=== PATIENT | male | born 1945 | race Caucasian/White ===

== ENCOUNTER 2017-08-19 09:47 | Inpatient (IN) | payer MEDICARE, OTHER ==
[~2017-08-19] VITALS: Ht 160 cm; Wt 78.0 kg
[2017-08-19] VITALS (7 sets, daily range): BP systolic 152–176; BP diastolic 51–93
[2017-08-19] MEDS ORDERED: TRAZODONE HCL150 MG ORAL (10:14)
[2017-08-19] MEDS ORDERED: CEPHALEXIN500 M1 ORAL (10:14)
[2017-08-19] MEDS ORDERED: ADALAT20 MG ORAL (10:14)
[2017-08-19] MEDS ORDERED: TERAZOSIN HCL1 MG ORAL (10:14)
[2017-08-19] MEDS ORDERED: DYRENIUM50 MG PO (10:14)
[2017-08-19] MEDS ORDERED: METFORMIN HCL500 M1 ORAL (10:14)
[2017-08-19] MEDS ORDERED: CHLORTHALIDONE25 MG ORAL (10:14)
[2017-08-19] MEDS ORDERED: PROSCAR5 MG ORAL (10:14)
[2017-08-19] MEDS ORDERED: ATORVASTATIN CA40 MG ORAL (10:14)
[2017-08-19] MEDS ORDERED: HYDROcodone/Acetamin 10/325 tab ORAL ONE (10:15)
--- NOTE | 2017-08-19 10:41 | Emergency Room Report ---
History of Present Illness General Chief Complaint: Pain Source: Patient, Medical Record Present Illness HPI Patient presents complaining of right-sided hip pain He also reports that he feels like he might have a bladder infection Patient feels generally weak Denies any chest pain or shortness of breath denies any vomiting however he has had decreased oral intake Denies any flank pain Denies any recent fall patient contributes his right hip pain to trauma that he had several years ago Allergies: Coded Allergies: CELECOXIB (Verified Allergy, Unknown, 08/19/17) EGG (Verified Allergy, Unknown, 08/19/17) PENICILLINS (Verified Allergy, Unknown, 08/19/17) Patient History Past Medical History: see triage record Pertinent Family History: none Reviewed Nursing Documentation: PMH: Agreed; PSxH: Agreed Nursing Documentation-PMH Past Medical History: No History, Except For Hx Hypertension: Yes Hx Diabetes: Yes Review of Systems All Other Systems: negative except mentioned in HPI Physical Exam Vital Signs Date Time Temp Pulse Resp B/P (MAP) Pulse Ox O2 Delivery O2 Flow Rate FiO2 08/19/17 09:44 97.9 64 20 168/72 96 Room Air 97.9 Sp02 EP Interpretation: reviewed, normal General Appearance: no apparent distress Head: normocephalic, atraumatic Eyes: bilateral eye PERRL, bilateral eye EOMI ENT: normal pharynx, no angioedema Neck: full range of motion, supple Respiratory: lungs clear, normal breath sounds Cardiovascular #1: regular rate, rhythm Gastrointestinal: non tender, soft Genitourinary: other - Scrotal edema Musculoskeletal: other - Tender on palpation of the right hip, edema on both lower extremities patient in place with a walker Neurologic: alert, oriented x3, responsive Skin: other - Both lower extremity Lymphatic: no adenopathy Medical Decision Making Diagnostic Impression: Primary Impression: UTI (urinary tract infection) Additional Impression: Weakness ER Course Patient is a fairly complex patient with multiple differential to consideration including but not limited to cardiac cardiopulmonary and vascular emergencies Infectious pathology as well Patient shows signs of UTI Is generally weak also having difficulty and bleeding and at this time is admitted for further inpatient care Labs Test 08/19/17 10:20 08/19/17 11:01 White Blood Count 6.8 K/UL (4.8-10.8) Red Blood Count 4.36 M/UL (4.70-6.10) Hemoglobin 12.1 G/DL (14.2-18.0) Hematocrit 37.3 % (42.0-52.0) Mean Corpuscular Volume 86 FL (80-99) Mean Corpuscular Hemoglobin 27.8 PG (27.0-31.0) Mean Corpuscular Hemoglobin Concent 32.5 G/DL (32.0-36.0) Red Cell Distribution Width 13.3 % (11.6-14.8) Platelet Count 221 K/UL (150-450) Mean Platelet Volume 8.7 FL (6.5-10.1) Neutrophils (%) (Auto) 57.0 % (45.0-75.0) Lymphocytes (%) (Auto) 27.4 % (20.0-45.0) Monocytes (%) (Auto) 6.3 % (1.0-10.0) Eosinophils (%) (Auto) 8.0 % (0.0-3.0) Basophils (%) (Auto) 1.3 % (0.0-2.0) Sodium Level 139 MMOL/L (136-145) Potassium Level 4.1 MMOL/L (3.5-5.1) Chloride Level 105 MMOL/L (98-107) Carbon Dioxide Level 30 MMOL/L (21-32) Anion Gap 4 mmol/L (5-15) Blood Urea Nitrogen 22 mg/dL (7-18) Creatinine 1.3 MG/DL (0.55-1.30) Estimat Glomerular Filtration Rate mL/min (>60) Glucose Level 100 MG/DL (74-106) Calcium Level 9.3 MG/DL (8.5-10.1) Total Bilirubin 0.3 MG/DL (0.2-1.0) Aspartate Amino Transf (AST/SGOT) 18 U/L (15-37) Alanine Aminotransferase (ALT/SGPT) 30 U/L (12-78) Alkaline Phosphatase 84 U/L (46-116) Total Creatine Kinase 193 U/L (26-308) Creatine Kinase MB 2.9 NG/ML (0.0-3.6) Creatine Kinase MB Relative Index 1.5 Troponin I -0.020 ng/mL (0.000-0.056) Total Protein 7.4 G/DL (6.4-8.2) Albumin 3.3 G/DL (3.4-5.0) Globulin 4.1 g/dL Albumin/Globulin Ratio 0.8 (1.0-2.7) Urine Color Pale yellow Urine Appearance Clear Urine pH 5 (4.5-8.0) Urine Specific [place] 1.020 (1.005-1.035) Urine Protein Negative (NEGATIVE) Urine Glucose (UA) Negative (NEGATIVE) Urine Ketones Negative (NEGATIVE) Urine Occult Blood Negative (NEGATIVE) Urine Nitrite Negative (NEGATIVE) Urine Bilirubin Negative (NEGATIVE) Urine Urobilinogen Normal MG/DL (0.0-1.0) Urine Leukocyte Esterase 1+ (NEGATIVE) Urine RBC 0-2 /HPF (0 - 0) Urine WBC 0-2 /HPF (0 - 0) Urine Squamous Epithelial Cells None /LPF (NONE/OCC) Urine Bacteria None /HPF (NONE) Rhythm Strip Diag. Results EP Interpretation: yes Rate: 66 Rhythm: NSR, no PVC's, no ectopy Chest X-Ray Diagnostic Results Chest X-Ray Diagnostic Results : Chest X-Ray Ordered: Yes # of Views/Limited/Complete: 1 View Indication: Chest Pain EP Interpretation: Yes Interpretation: no consolidation, no effusion, no pneumothorax, no acute cardiopulmonary disease - Cardiomegaly Impression: No acute disease Electronically Signed by: David Garcia DO CT/MRI/US Diagnostic Results CT/MRI/US Diagnostic Results : Impression CT pelvic no acute disease Last Vital Signs Date Time Temp Pulse Resp B/P (MAP) Pulse Ox O2 Delivery O2 Flow Rate FiO2 08/19/17 09:56 97.9 61 15 165/64 98 Room Air 97.9 Status: improved Disposition: ADMITTED INPATIENT Condition: Serious David Garcia DO Aug 19, 2017 10:41
[2017-08-19 10:45] LABS: BASOPHILS % (AUTO) 1.3 % (0.0-2.0); HEMATOCRIT 37.3 % (42.0-52.0); HEMOGLOBIN 12.1 G/DL (14.2-18.0); LYMPHOCYTES % (AUTO) 27.4 % (20.0-45.0); MEAN CORPUSCULAR VOLUME 86 FL (80-99); MONOCYTES % (AUTO) 6.3 % (1.0-10.0); PLATELET COUNT 221 K/UL (150-450); RED BLOOD COUNT 4.36 M/UL (4.70-6.10); RED CELL DISTRIBUTION WIDTH 13.3 % (11.6-14.8); WHITE BLOOD COUNT 6.8 K/UL (4.8-10.8)
[2017-08-19 11:04] LABS: ANION GAP 4 mmol/L (5-15); BLOOD UREA NITROGEN 22 mg/dL (7-18); CALCIUM 9.3 MG/DL (8.5-10.1); CARBON DIOXIDE 30 MMOL/L (21-32); CHLORIDE 105 MMOL/L (98-107); CREATININE 1.3 MG/DL (0.55-1.30); POTASSIUM 4.1 MMOL/L (3.5-5.1); SODIUM 139 MMOL/L (136-145)
[2017-08-19 11:17] LABS: ALANINE AMINOTRANSFERASE 30 U/L (12-78); ALBUMIN 3.3 G/DL (3.4-5.0); ALBUMIN/GLOBULIN RATIO 0.8 (1.0-2.7); ALKALINE PHOSPHATASE 84 U/L (46-116); ASPARTATE AMINO TRANSFERASE 18 U/L (15-37); BILIRUBIN,TOTAL 0.3 MG/DL (0.2-1.0); CKMB 2.9 NG/ML (0.0-3.6); CREATINE KINASE 193 U/L (26-308)
[2017-08-19 11:19] LABS: BILIRUBIN, URINE NEGATIVE (NEGATIVE); COLOR,URINE PALE YELLOW; GLUCOSE, URINE (UA) NEGATIVE (NEGATIVE); KETONES,URINE NEGATIVE (NEGATIVE); LEUKOCYTE ESTERASE ,URINE 1+ (NEGATIVE); NITRITE,URINE NEGATIVE (NEGATIVE); PH,URINE 5 (4.5-8.0); PROTEIN,URINE NEGATIVE (NEGATIVE); UROBILINOGEN,URINE NORMAL MG/DL (0.0-1.0)
[2017-08-19 11:41] LABS: APPEARANCE,URINE CLEAR
--- NOTE | 2017-08-19 12:26 | Diagnostic Imaging Report ---
EXAM: XR Chest, 1 View CLINICAL HISTORY: CP TECHNIQUE: Frontal view of the chest. COMPARISON: No relevant prior studies available. FINDINGS: Lungs: Bibasilar lung atelectasis. Mild central vascular prominence. Pleural space: Unremarkable. No pneumothorax. Heart: Cardiomegaly. Mediastinum: Unremarkable. Bones/joints: Unremarkable. Other findings: IMPRESSION: 1. Cardiomegaly. Mild central vascular prominence. 2. Bibasilar lung atelectasis.
--- NOTE | 2017-08-19 12:53 | Diagnostic Imaging Report ---
EXAM: CT Pelvis Without Intravenous Contrast CLINICAL HISTORY: PAIN TECHNIQUE: Axial computed tomography images of the pelvis without intravenous contrast. CTDI is 18.27 mGy and DLP is 495 mGy-cm. One or more of the following dose reduction techniques were used: automated exposure control, adjustment of the mA and/or kV according to patient size, use of iterative reconstruction technique. COMPARISON: No relevant prior studies available. FINDINGS: Kidneys and ureters: Low-lying fused kidneys, lower abdomen. Nonobstructive 5.5 mm stone inferior pole of the right kidney. Bowel: Unremarkable. No obstruction. No mucosal thickening. Appendix: No findings to suggest acute appendicitis. Intraperitoneal space: Unremarkable. No free air. No significant fluid collection. Bladder: 2.2 cm diverticula of the right urinary bladder base. Thickening and stranding of the urinary bladder may be cystitis. No stones. Reproductive: Unremarkable as visualized. Bones/joints: L5-S1 degenerative disc disease. No acute fracture. No dislocation. Soft tissues: Large bilateral fat-containing inguinal hernias. Left ureter enters into the large left inguinal hernia before traversing to the urinary bladder. Mild fullness of bilateral renal pelvis without renal obstruction. Vasculature: Unremarkable. No lower abdominal aortic aneurysm. Lymph nodes: Prominent bilateral inguinal lymph nodes. IMPRESSION: 1. Low-lying fused kidneys, lower abdomen. Nonobstructive 5.5 mm stone inferior pole of the right kidney. 2. Large bilateral fat-containing inguinal hernias. Left ureter enters into the large left inguinal hernia before traversing to the urinary bladder. Mild fullness of bilateral renal pelvis without renal obstruction. 3. 2.2 cm diverticula of the right urinary bladder base. 4. Thickening and stranding of the urinary bladder may be cystitis. 5. Prominent bilateral inguinal lymph nodes.
[2017-08-19] MEDS ORDERED: 1/2NS w/KCl 20mEq 1000ml 1,000 ML IV SCH (13:30)
--- NOTE | 2017-08-19 15:00 | History and Physical Report ---
DATE OF ADMISSION: 08/19/2017 CHIEF COMPLAINT: Urinary frequency and urgency. HISTORY OF PRESENT ILLNESS: This is a 72-year-old male, who lives in [facility]. The patient was sent to this hospital emergency room for further evaluation. PAST MEDICAL HISTORY: 1. Hypertensive cardiovascular disease. 2. Bipolar disorder. 3. Hypercholesterolemia. 4. Benign prostatic hypertrophy. 5. Type 2 diabetes mellitus. 6. Status post bilateral hip replacements. HOME MEDICATIONS: Atorvastatin, cephalexin, chlorthalidone, Proscar, metformin, nifedipine, Hytrin, trazodone, and Dyrenium. ALLERGIES: Penicillins and Celecoxib. FAMILY HISTORY: Unremarkable. SOCIAL HISTORY: He lives in a [facility]. HABITS: He is a nonsmoker and nondrinker. There is no history of illicit drug abuse. REVIEW OF SYSTEMS: HEENT: Hearing and eyesight are normal. ENDOCRINE: Significant for type 2 diabetes mellitus. RESPIRATORY: Denies shortness of breath, cough, or hemoptysis. CARDIOVASCULAR: Denies chest pain or palpitations. GASTROINTESTINAL: No history of hematochezia, melena, hematemesis, diarrhea, or constipation. GENITOURINARY: Significant for dysuria, frequency, urgency, and hematuria. NEUROLOGICAL: No history of stroke, syncope, or Parkinson disease. PSYCHIATRIC: Significant for bipolar disorder. PHYSICAL EXAMINATION: GENERAL: This is an elderly disheveled, male, who is in no acute distress. VITAL SIGNS: Blood pressure 165/64, pulse 64 and regular, respirations 14, and temperature 97.9. HEENT: The head is normocephalic and atraumatic. Pupils are equal, round, and reactive to light and accommodation consensually. NECK: Supple. Trachea midline. No lymphadenopathy or thyromegaly. LUNGS: Clear to auscultation and percussion. HEART: Regular rate and rhythm without rubs, murmurs, or gallops. ABDOMEN: Soft and nontender. Bowel sounds were active. EXTREMITIES: No clubbing, cyanosis, or edema. NEUROLOGIC: He is alert and oriented x4. Cranial nerves II through XII intact. LABORATORY AND ANCILLARY DATA: CBC within normal limits. Chemistry within normal limits. Urinalysis essentially within normal limits. ASSESSMENT: Ongoing urinary tract infection. PLAN: 1. Start IV antibiotics. 2. Continue home medications. Prasanth Ahumada M.D. DR: KRYSTINA JOB#: [id number] CC: MATTHEW
[2017-08-19] MEDS ORDERED: Milk of Magnesia 30ml Ud ORAL PRN (21:00)
[2017-08-19] MEDS: Docusate 100mg cap ORAL SCH (21:20)
[2017-08-19] MEDS: Heparin 5000 units/ml inj SUBQ SCH (21:20)
[2017-08-20] VITALS: BP 159/63
[2017-08-20 04:00] VITALS: BP 153/72
[2017-08-20 08:00] VITALS: BP 140/59
[2017-08-20] MEDS: Levofloxacin 250mg/D5W 50ml IVPB SCH (08:38)
[2017-08-20] MEDS: Docusate 100mg cap ORAL SCH ×2 (08:38→20:39)
[2017-08-20] MEDS: metFORMIN 500mg tab ORAL SCH (08:38)
[2017-08-20] MEDS: Heparin 5000 units/ml inj SUBQ SCH ×2 (08:41→20:41)
[2017-08-20 12:00] VITALS: BP 142/70
--- NOTE | 2017-08-20 12:31 | Cardiology Report ---
APPROVED REPORT EKG Measurement Heart [id number] Sinus rhythm with sinus arrhythmia with occasional premature ventricular complexes Left axis deviation Nonspecific intraventricular block Cannot rule out Septal infarct, age undetermined T wave abnormality, consider inferolateral ischemia Abnormal ECG
--- NOTE | 2017-08-20 15:16 | General Progress Note ---
Assessment/Plan Assessment/Plan Massive B leg Edema Scrotal edema DC IVF. Diurese. R/O Liver Cirrhosis, R/o CHF Subjective Allergies: Coded Allergies: CELECOXIB (Verified Allergy, Unknown, 08/19/17) EGG (Verified Allergy, Unknown, 08/19/17) PENICILLINS (Verified Allergy, Unknown, 08/19/17) Subjective c/o B leg +scrotal edema Objective Last 24 Hour Vital Signs Date Time Temp Pulse Resp B/P (MAP) Pulse Ox O2 Delivery O2 Flow Rate FiO2 08/20/17 12:00 97.9 74 19 142/70 95 97.9 08/20/17 08:47 70 140/59 08/20/17 08:00 97.9 70 18 140/59 94 Room Air 97.9 08/20/17 04:00 97.6 66 20 153/72 96 Room Air 97.6 08/20/17 00:00 97.7 62 26 159/63 96 Room Air 97.7 08/19/17 20:32 162/84 08/19/17 19:19 97.9 61 20 176/93 97 Room Air 97.9 08/19/17 16:46 97.4 57 22 160/68 97 Room Air 97.4 08/19/17 15:38 96.4 67 18 160/51 97 Room Air 96.4 Intake and Output 08/19/17 08/20/17 19:00 07:00 Intake Total 260 ml Balance 260 ml Intake Oral 260 ml # Voids 1 6 Height (Feet): 5 Height (Inches): 3.00 Weight (Pounds): 172 Objective Cv RR Lungs CTA Abd SNT. BS + +4 Scrotal edema +4 b Leg edema Prasanth Ahumada MD Aug 20, 2017 15:16
[2017-08-20] MEDS ORDERED: 1/2 NS 1000ml IV ONE (15:25)
[2017-08-20 16:26] VITALS: BP 156/77
[2017-08-20 19:21] VITALS: BP 144/63
--- NOTE | 2017-08-20 22:18 | Consultation ---
History of Present Illness General Date patient seen: Aug 19, 2017 Chief Complaint: Pain Present Illness HPI 72-year-old male with mmp, who lives in [facility]. The pt has been hyperverbal and gets agitated easily the pt is impulsive and has poor insight Allergies: Coded Allergies: CELECOXIB (Verified Allergy, Unknown, 08/19/17) EGG (Verified Allergy, Unknown, 08/19/17) PENICILLINS (Verified Allergy, Unknown, 08/19/17) Medication History Scheduled Atorvastatin Calcium* (Atorvastatin Calcium*), 40 MG ORAL BEDTIME, (Reported) Finasteride* (Proscar*), 5 MG ORAL DAILY, (Reported) Metformin Hcl* (Metformin Hcl*), 500 MG ORAL DAILY, (Reported) Terazosin Hcl* (Hytrin*), 2 MG ORAL BEDTIME, (Reported) Trazodone* (Trazodone*), 50 MG ORAL BEDTIME, (Reported) Discontinued Medications Cephalexin* (Cephalexin*), 500 MG ORAL BID, (Reported) Discontinued Reason: MD discontinued med Chlorthalidone* (Chlorthalidone*), 25 MG ORAL DAILY, (Reported) Discontinued Reason: MD discontinued med Nifedipine (Nifedipine*), 60 MG ORAL DAILY, (Reported) Discontinued Reason: MD discontinued med Triamterene (Dyrenium), 37.5 MG PO DAILY, (Reported) Discontinued Reason: MD discontinued med Patient History Limited by: medical condition History Provided By: Patient, Medical Record, PMD Healthcare decision maker self Resuscitation status Full Code Advanced Directive on File No Past Medical/Surgical History Past Medical/Surgical History: (1) Pain (2) Weakness (3) UTI (urinary tract infection) Review of Systems Psychiatric: Reports: prior hx, anxiety, depressed feelings, emotional problems Physical Exam General Appearance: no apparent distress, alert Neurologic: oriented x 3, responsive, depressed affect Last 24 Hour Vital Signs Date Time Temp Pulse Resp B/P (MAP) Pulse Ox O2 Delivery O2 Flow Rate FiO2 08/20/17 19:21 97.9 72 20 144/63 95 Room Air 97.9 72 08/20/17 16:26 98.1 64 21 156/77 96 Room Air 98.1 08/20/17 12:00 97.9 74 19 142/70 95 97.9 08/20/17 08:47 70 140/59 08/20/17 08:00 97.9 70 18 140/59 94 Room Air 97.9 08/20/17 04:00 97.6 66 20 153/72 96 Room Air 97.6 08/20/17 00:00 97.7 62 26 159/63 96 Room Air 97.7 Intake and Output 08/19/17 08/20/17 19:00 07:00 Intake Total 260 ml Balance 260 ml Intake Oral 260 ml # Voids 1 6 Height (Feet): 5 Height (Inches): 3.00 Weight (Pounds): 172 Medications Current Medications Medications (Trade) Dose Ordered Sig/Amy Route PRN Reason Start Time Stop Time Status Last Admin Dose Admin Acetaminophen (Tylenol) 650 mg Q4H PRN ORAL Mild Pain (Pain Scale 1-3) 08/19/17 13:00 09/18/17 12:59 08/19/17 23:54 Dextrose (Dextrose 50%) 25 ml STAT PRN IV Hypoglycemia 08/19/17 13:00 09/18/17 12:59 Dextrose (Dextrose 50%) 50 ml STAT PRN IV Hypoglycemia 08/19/17 12:15 09/18/17 12:14 Diphenhydramine HCl (Benadryl) 25 mg HSPRN PRN ORAL Insomnia 08/19/17 21:15 09/18/17 21:14 08/19/17 21:19 Docusate Sodium (Colace) 100 mg EVERY 12 HOURS ORAL 08/19/17 21:00 09/18/17 20:59 08/20/17 20:39 Furosemide (Lasix) 20 mg EVERY 12 HOURS ORAL 08/20/17 21:00 09/19/17 20:59 08/20/17 20:39 Heparin Sodium (Porcine) (Heparin 5000 units/ml) 5,000 units EVERY 12 HOURS SUBQ 08/19/17 21:00 09/18/17 20:59 08/20/17 20:41 Levofloxacin 50 ml @ 50 mls/hr Q24H IVPB 08/20/17 09:00 08/25/17 09:59 08/20/17 08:38 Magnesium Hydroxide (Mom) 30 ml HSPRN PRN ORAL Constipation 08/19/17 21:00 09/18/17 20:59 Metformin HCl (Glucophage) 500 mg DAILY ORAL 08/20/17 09:00 09/19/17 08:59 08/20/17 08:38 Nifedipine (Procardia XL) 90 mg DAILY ORAL 08/21/17 09:00 09/18/17 13:59 Ondansetron HCl (Zofran) 4 mg Q6H PRN IVP Nausea & Vomiting 08/19/17 13:00 09/18/17 12:59 Pantoprazole (Protonix) 40 mg ACBREAKFAST ORAL 08/20/17 06:30 09/19/17 06:29 08/20/17 06:37 Potassium Chloride (K-Dur) 40 meq DAILY ORAL 08/21/17 09:00 09/20/17 08:59 Assessment/Plan Status: stable Assessment/Plan Bipolar d/o -Depakote 250mg bid Girish Beck M.D. Aug 20, 2017 22:18
--- NOTE | 2017-08-20 22:19 | General Progress Note ---
Assessment/Plan Assessment/Plan Bipolar d/o -Depakote 250mg bid Subjective Date patient seen: Aug 20, 2017 Neurologic/Psychiatric: Reports: anxiety, depressed, emotional problems Allergies: Coded Allergies: CELECOXIB (Verified Allergy, Unknown, 08/19/17) EGG (Verified Allergy, Unknown, 08/19/17) PENICILLINS (Verified Allergy, Unknown, 08/19/17) Objective Last 24 Hour Vital Signs Date Time Temp Pulse Resp B/P (MAP) Pulse Ox O2 Delivery O2 Flow Rate FiO2 08/20/17 19:21 97.9 72 20 144/63 95 Room Air 97.9 72 08/20/17 16:26 98.1 64 21 156/77 96 Room Air 98.1 08/20/17 12:00 97.9 74 19 142/70 95 97.9 08/20/17 08:47 70 140/59 08/20/17 08:00 97.9 70 18 140/59 94 Room Air 97.9 08/20/17 04:00 97.6 66 20 153/72 96 Room Air 97.6 08/20/17 00:00 97.7 62 26 159/63 96 Room Air 97.7 Intake and Output 08/19/17 08/20/17 19:00 07:00 Intake Total 260 ml Balance 260 ml Intake Oral 260 ml # Voids 1 6 Height (Feet): 5 Height (Inches): 3.00 Weight (Pounds): 172 General Appearance: no apparent distress, alert Neurologic: oriented x 3, responsive, depressed affect Girish Beck M.D. Aug 20, 2017 22:19
[2017-08-21 00:02] VITALS: BP 151/54
[2017-08-21 04:09] VITALS: BP 148/74
[2017-08-21 06:30] LABS: ANION GAP 7 mmol/L (5-15); BLOOD UREA NITROGEN 21 mg/dL (7-18); CALCIUM 9.8 MG/DL (8.5-10.1); CARBON DIOXIDE 30 MMOL/L (21-32); CHLORIDE 101 MMOL/L (98-107); CREATININE 1.4 MG/DL (0.55-1.30); POTASSIUM 3.9 MMOL/L (3.5-5.1); SODIUM 138 MMOL/L (136-145)
[2017-08-21 08:00] VITALS: BP 172/143
[2017-08-21] MEDS: Docusate 100mg cap ORAL SCH ×2 (09:20→21:25)
[2017-08-21] MEDS: metFORMIN 500mg tab ORAL SCH (09:20)
[2017-08-21] MEDS: Heparin 5000 units/ml inj SUBQ SCH ×2 (09:23→21:31)
[2017-08-21] MEDS: Levofloxacin 250mg/D5W 50ml IVPB SCH (10:53)
[2017-08-21 11:51] VITALS: BP 150/87
--- NOTE | 2017-08-21 12:19 | General Progress Note ---
Assessment/Plan Assessment/Plan Massive B leg Edema Scrotal edema DC IVF. Diurese. R/O Liver Cirrhosis, R/o CHF. Abd CT not CW Cirrhosis. Clinical picture CW CHF. Awaiting 2D [place] results. Subjective Allergies: Coded Allergies: CELECOXIB (Verified Allergy, Unknown, 08/19/17) EGG (Verified Allergy, Unknown, 08/19/17) PENICILLINS (Verified Allergy, Unknown, 08/19/17) Subjective c/o B leg +scrotal edema Objective Last 24 Hour Vital Signs Date Time Temp Pulse Resp B/P (MAP) Pulse Ox O2 Delivery O2 Flow Rate FiO2 08/21/17 11:51 97.4 76 20 150/87 97 97.4 08/21/17 09:20 69 172/143 08/21/17 08:00 97.9 69 20 172/143 95 97.9 08/21/17 04:09 96.2 79 20 148/74 95 Room Air 96.2 79 08/21/17 00:02 96.3 62 20 151/54 95 Room Air 96.3 62 08/20/17 19:21 97.9 72 20 144/63 95 Room Air 97.9 72 08/20/17 16:26 98.1 64 21 156/77 96 Room Air 98.1 Intake and Output 08/20/17 08/21/17 19:00 07:00 Intake Total 1500 ml Output Total 400 ml Balance 1500 ml -400 ml Intake Oral 1500 ml Output Urine Total 400 ml # Voids 5 4 # Bowel Movements 2 Laboratory Tests 08/21/17 05:15: Sodium Level 138, Potassium Level 3.9, Chloride Level 101, Carbon Dioxide Level 30, Anion Gap 7, Blood Urea Nitrogen 21H, Creatinine 1.4H, Estimat Glomerular Filtration Rate , Glucose Level 114H, Calcium Level 9.8, Magnesium Level 1.8 Height (Feet): 5 Height (Inches): 3.00 Weight (Pounds): 172 Objective Cv RR Lungs CTA Abd SNT. BS + +4 Scrotal edema +4 b Leg edema Prasanth Ahumada MD Aug 21, 2017 12:19
[2017-08-21 15:47] VITALS: BP 130/71
--- NOTE | 2017-08-21 18:52 | Cardiology Report ---
APPROVED REPORT EXAM: Two-dimensional and M-mode echocardiogram with Doppler and color Doppler. INDICATION Congestive Heart Failure M-Mode DIMENSIONS IVSd2.7 (0.7-1.1cm)Left Atrium (MM)3.9 (1.6-4.0cm) LVDd5.8 (3.5-5.6cm)Aortic Root3.5 (2.0-3.7cm) PWd1.6 (0.7-1.1cm)Aortic Cusp Exc.1.8 (1.5-2.0cm) IVSs3.6 cm LVDs5.2 (2.5-4.0cm) PWs1.3 cm Technically difficult study due to poor acoustical windows. Normal left ventricular chamber size, systolic function and wall motion. Left ventricular ejection fraction estimated to be 65-70 %. Mild left ventricular hypertrophy by 2-D. No evidence of pericardial effusion. All other cardiac chamber sizes are within normal limits. Focal aortic valve sclerosis with adequate cusp excursion. Thickened mitral valve leaflets with normal excursion. Mitral annulus and aortic root calcification. Pulmonic valve not well visualized. Normal tricuspid valve structure. IVC at size 1.9 with physiologic collapse. poor visualization of valvular detail A color flow and spectral Doppler study was performed and revealed: No aortic regurgitation. Mild mitral regurgitation. Mitral diastolic velocities suggest reduced left ventricular relaxation c/w mild LV diastolic dysfunction (Grade I ). Mild tricuspid regurgitation. Tricuspid systolic velocities suggests peak right ventricular systolic pressure of 16mmHg. Trace Pulmonic regurgitation present.
[2017-08-21 20:00] VITALS: BP 129/71
--- NOTE | 2017-08-21 23:43 | General Progress Note ---
Assessment/Plan Assessment/Plan Bipolar d/o -Depakote 250mg bid Subjective Date patient seen: Aug 21, 2017 Neurologic/Psychiatric: Reports: anxiety, depressed, emotional problems Allergies: Coded Allergies: CELECOXIB (Verified Allergy, Unknown, 08/19/17) EGG (Verified Allergy, Unknown, 08/19/17) PENICILLINS (Verified Allergy, Unknown, 08/19/17) Objective Last 24 Hour Vital Signs Date Time Temp Pulse Resp B/P (MAP) Pulse Ox O2 Delivery O2 Flow Rate FiO2 08/21/17 20:00 98.1 79 17 129/71 96 Room Air 98.1 08/21/17 15:47 98.0 75 20 130/71 94 98.0 08/21/17 11:51 97.4 76 20 150/87 97 97.4 08/21/17 09:20 69 172/143 08/21/17 08:00 97.9 69 20 172/143 95 97.9 08/21/17 04:09 96.2 79 20 148/74 95 Room Air 96.2 79 08/21/17 00:02 96.3 62 20 151/54 95 Room Air 96.3 62 Intake and Output 08/20/17 08/21/17 19:00 07:00 Intake Total 1500 ml Output Total 400 ml Balance 1500 ml -400 ml Intake Oral 1500 ml Output Urine Total 400 ml # Voids 5 4 # Bowel Movements 2 Laboratory Tests 08/21/17 05:15: Sodium Level 138, Potassium Level 3.9, Chloride Level 101, Carbon Dioxide Level 30, Anion Gap 7, Blood Urea Nitrogen 21H, Creatinine 1.4H, Estimat Glomerular Filtration Rate , Glucose Level 114H, Calcium Level 9.8, Magnesium Level 1.8 Height (Feet): 5 Height (Inches): 3.00 Weight (Pounds): 172 Girish Beck M.D. Aug 21, 2017 23:43
[2017-08-22] VITALS (7 sets, daily range): BP systolic 135–159; BP diastolic 64–83
[2017-08-22 06:57] LABS: ANION GAP 7 mmol/L (5-15); BLOOD UREA NITROGEN 25 mg/dL (7-18); CALCIUM 9.4 MG/DL (8.5-10.1); CARBON DIOXIDE 30 MMOL/L (21-32); CHLORIDE 101 MMOL/L (98-107); CREATININE 1.4 MG/DL (0.55-1.30); SODIUM 137 MMOL/L (136-145)
[2017-08-22] MEDS: Docusate 100mg cap ORAL SCH ×2 (08:30→20:34)
[2017-08-22] MEDS: metFORMIN 500mg tab ORAL SCH (08:30)
[2017-08-22] MEDS: Heparin 5000 units/ml inj SUBQ SCH ×2 (08:33→20:37)
[2017-08-22] MEDS: Levofloxacin 250mg/D5W 50ml IVPB SCH (09:35)
--- NOTE | 2017-08-22 12:57 | General Progress Note ---
Assessment/Plan Status: stable Assessment/Plan Bipolar d/o -Depakote 250mg bid Subjective Date patient seen: Aug 22, 2017 Neurologic/Psychiatric: Reports: anxiety, emotional problems Allergies: Coded Allergies: CELECOXIB (Verified Allergy, Unknown, 08/19/17) EGG (Verified Allergy, Unknown, 08/19/17) PENICILLINS (Verified Allergy, Unknown, 08/19/17) Subjective the pt is irritable and has multiple complaints. Objective Last 24 Hour Vital Signs Date Time Temp Pulse Resp B/P (MAP) Pulse Ox O2 Delivery O2 Flow Rate FiO2 08/22/17 12:07 98.2 73 18 147/82 96 Room Air 98.2 08/22/17 09:35 90 159/68 08/22/17 08:00 97.7 90 20 159/68 95 Room Air 97.7 08/22/17 04:00 98.4 79 18 158/74 98 Room Air 98.4 08/22/17 00:00 98.0 70 18 148/74 96 Room Air 98.0 08/21/17 20:00 98.1 79 17 129/71 96 Room Air 98.1 08/21/17 15:47 98.0 75 20 130/71 94 98.0 Intake and Output 08/21/17 08/22/17 19:00 07:00 Intake Total 940 ml 720 ml Output Total 100 ml Balance 940 ml 620 ml Intake Oral 940 ml 720 ml Output Urine Total 100 ml # Voids 4 3 Laboratory Tests 08/22/17 05:40: Sodium Level 137, Potassium Level 4.0, Chloride Level 101, Carbon Dioxide Level 30, Anion Gap 7, Blood Urea Nitrogen 25H, Creatinine 1.4H, Estimat Glomerular Filtration Rate , Glucose Level 101, Calcium Level 9.4 Height (Feet): 5 Height (Inches): 3.00 Weight (Pounds): 172 General Appearance: no apparent distress, alert Neurologic: oriented x 3, responsive, depressed affect Girish Beck M.D. Aug 22, 2017 12:57
--- NOTE | 2017-08-22 18:22 | General Progress Note ---
Assessment/Plan Assessment/Plan Massive B leg Edema Scrotal edema DC IVF. Diurese. R/O Liver Cirrhosis, R/o CHF. Abd CT not CW Cirrhosis. Clinical picture CW CHF. 2D Echo Diastolic CHF. Continue to diurese. Subjective Allergies: Coded Allergies: CELECOXIB (Verified Allergy, Unknown, 08/19/17) EGG (Verified Allergy, Unknown, 08/19/17) PENICILLINS (Verified Allergy, Unknown, 08/19/17) Subjective c/o B leg +scrotal edema Objective Last 24 Hour Vital Signs Date Time Temp Pulse Resp B/P (MAP) Pulse Ox O2 Delivery O2 Flow Rate FiO2 08/22/17 16:00 97.2 66 20 147/75 98 Room Air 97.2 08/22/17 12:07 98.2 73 18 147/82 96 Room Air 98.2 08/22/17 09:35 90 159/68 08/22/17 08:00 97.7 90 20 159/68 95 Room Air 97.7 08/22/17 04:00 98.4 79 18 158/74 98 Room Air 98.4 08/22/17 00:00 98.0 70 18 148/74 96 Room Air 98.0 08/21/17 20:00 98.1 79 17 129/71 96 Room Air 98.1 Intake and Output 08/21/17 08/22/17 19:00 07:00 Intake Total 940 ml 720 ml Output Total 100 ml Balance 940 ml 620 ml Intake Oral 940 ml 720 ml Output Urine Total 100 ml # Voids 4 3 Laboratory Tests 08/22/17 05:40: Sodium Level 137, Potassium Level 4.0, Chloride Level 101, Carbon Dioxide Level 30, Anion Gap 7, Blood Urea Nitrogen 25H, Creatinine 1.4H, Estimat Glomerular Filtration Rate , Glucose Level 101, Calcium Level 9.4 Height (Feet): 5 Height (Inches): 3.00 Weight (Pounds): 172 Objective Cv RR Lungs CTA Abd SNT. BS + +4 Scrotal edema +4 b Leg edema Prasanth Ahumada MD Aug 22, 2017 18:22
[2017-08-23 04:00] VITALS: BP 146/75
[2017-08-23 06:55] LABS: ANION GAP 6 mmol/L (5-15); BLOOD UREA NITROGEN 28 mg/dL (7-18); CALCIUM 9.7 MG/DL (8.5-10.1); CARBON DIOXIDE 30 MMOL/L (21-32); CHLORIDE 102 MMOL/L (98-107); CREATININE 1.4 MG/DL (0.55-1.30); SODIUM 138 MMOL/L (136-145)
[2017-08-23 08:00] VITALS: BP 147/78
[2017-08-23] MEDS: Docusate 100mg cap ORAL SCH ×2 (08:51→20:52)
[2017-08-23] MEDS: metFORMIN 500mg tab ORAL SCH (08:51)
[2017-08-23] MEDS: Heparin 5000 units/ml inj SUBQ SCH ×2 (08:55→20:57)
[2017-08-23] MEDS: Levofloxacin 250mg/D5W 50ml IVPB SCH (09:51)
[2017-08-23 12:00] VITALS: BP 147/87
--- NOTE | 2017-08-23 12:21 | General Progress Note ---
Assessment/Plan Assessment/Plan Bipolar d/o -Depakote 250mg bid Subjective Date patient seen: Aug 23, 2017 Neurologic/Psychiatric: Reports: anxiety, depressed, emotional problems Allergies: Coded Allergies: CELECOXIB (Verified Allergy, Unknown, 08/19/17) EGG (Verified Allergy, Unknown, 08/19/17) PENICILLINS (Verified Allergy, Unknown, 08/19/17) Subjective the pt is irritable and [place]. c/o [place]. The pt was at some point agitated. Objective Last 24 Hour Vital Signs Date Time Temp Pulse Resp B/P (MAP) Pulse Ox O2 Delivery O2 Flow Rate FiO2 08/23/17 08:51 72 147/78 08/23/17 08:00 97.0 72 20 147/78 97 97.0 72 08/23/17 08:00 Room Air 08/23/17 04:00 97.1 65 20 146/75 97 97.1 08/22/17 23:50 98.1 73 22 152/83 96 98.1 08/22/17 20:00 98.3 73 22 135/64 95 Room Air 98.3 08/22/17 20:00 98.3 73 22 135/64 95 98.3 08/22/17 16:00 97.2 66 20 147/75 98 Room Air 97.2 Intake and Output 08/22/17 08/23/17 19:00 07:00 Intake Total 1130 ml Balance 1130 ml Intake Oral 1080 ml IV Total 50 ml # Voids 6 1 Laboratory Tests 08/23/17 05:30: Sodium Level 138, Potassium Level 4.0, Chloride Level 102, Carbon Dioxide Level 30, Anion Gap 6, Blood Urea Nitrogen 28H, Creatinine 1.4H, Estimat Glomerular Filtration Rate , Glucose Level 102, Calcium Level 9.7, Magnesium Level 2.1 Height (Feet): 5 Height (Inches): 3.00 Weight (Pounds): 172 General Appearance: no apparent distress, alert, agitated Neurologic: oriented x 3, responsive, depressed affect Girish Beck M.D. Aug 23, 2017 12:21
--- NOTE | 2017-08-23 13:53 | General Progress Note ---
Assessment/Plan Assessment/Plan Massive B leg Edema Scrotal edema DC IVF. Diurese. R/O Liver Cirrhosis, R/o CHF. Abd CT not CW Cirrhosis. Clinical picture CW CHF. 2D Echo Diastolic CHF. Continue to diurese. Subjective Allergies: Coded Allergies: CELECOXIB (Verified Allergy, Unknown, 08/19/17) EGG (Verified Allergy, Unknown, 08/19/17) PENICILLINS (Verified Allergy, Unknown, 08/19/17) Subjective c/o B leg +scrotal edema Objective Last 24 Hour Vital Signs Date Time Temp Pulse Resp B/P (MAP) Pulse Ox O2 Delivery O2 Flow Rate FiO2 08/23/17 12:00 97.8 70 19 147/87 97 97.8 70 08/23/17 08:51 72 147/78 08/23/17 08:00 97.0 72 20 147/78 97 97.0 72 08/23/17 08:00 Room Air 08/23/17 04:00 97.1 65 20 146/75 97 97.1 08/22/17 23:50 98.1 73 22 152/83 96 98.1 08/22/17 20:00 98.3 73 22 135/64 95 Room Air 98.3 08/22/17 20:00 98.3 73 22 135/64 95 98.3 08/22/17 16:00 97.2 66 20 147/75 98 Room Air 97.2 Intake and Output 08/22/17 08/23/17 19:00 07:00 Intake Total 1130 ml Balance 1130 ml Intake Oral 1080 ml IV Total 50 ml # Voids 6 1 Laboratory Tests 08/23/17 05:30: Sodium Level 138, Potassium Level 4.0, Chloride Level 102, Carbon Dioxide Level 30, Anion Gap 6, Blood Urea Nitrogen 28H, Creatinine 1.4H, Estimat Glomerular Filtration Rate , Glucose Level 102, Calcium Level 9.7, Magnesium Level 2.1 Height (Feet): 5 Height (Inches): 3.00 Weight (Pounds): 172 Objective Cv RR Lungs CTA Abd SNT. BS + +4 Scrotal edema +4 b Leg edema Prasanth Ahumada MD Aug 23, 2017 13:53
[2017-08-23 16:00] VITALS: BP 142/66
[2017-08-23 20:00] VITALS: BP 172/78
[2017-08-24] VITALS: BP 147/109
[2017-08-24 04:00] VITALS: BP 178/97
--- NOTE | 2017-08-24 07:46 | General Progress Note ---
Assessment/Plan Assessment/Plan Decreased B leg Edema Less Scrotal edema DC IVF. Diurese. CHF. Abd CT not CW Cirrhosis. Clinical picture CW CHF. 2D Echo Diastolic CHF. Continue to diurese. DC home Subjective Allergies: Coded Allergies: CELECOXIB (Verified Allergy, Unknown, 08/19/17) EGG (Verified Allergy, Unknown, 08/19/17) PENICILLINS (Verified Allergy, Unknown, 08/19/17) Subjective c/o B leg +scrotal edema Objective Last 24 Hour Vital Signs Date Time Temp Pulse Resp B/P (MAP) Pulse Ox O2 Delivery O2 Flow Rate FiO2 08/24/17 04:00 97.6 77 18 178/97 95 Room Air 97.6 77 08/24/17 00:00 98.0 67 19 147/109 93 Room Air 98.0 67 08/23/17 20:00 98.0 71 17 172/78 94 Room Air 98.0 71 08/23/17 16:00 98.0 70 19 142/66 96 98.0 70 08/23/17 16:00 Room Air 08/23/17 12:00 Room Air 08/23/17 12:00 97.8 70 19 147/87 97 97.8 70 08/23/17 08:51 72 147/78 08/23/17 08:00 97.0 72 20 147/78 97 97.0 72 08/23/17 08:00 Room Air Intake and Output 08/23/17 08/24/17 19:00 07:00 Intake Total 350 ml 240 ml Balance 350 ml 240 ml Intake Oral 300 ml 240 ml IV Total 50 ml # Voids 2 4 Laboratory Tests 08/24/17 05:50: Sodium Level [Pending], Potassium Level [Pending], Chloride Level [Pending], Carbon Dioxide Level [Pending], Blood Urea Nitrogen [Pending], Creatinine [ Pending], Estimat Glomerular Filtration Rate [Pending], Glucose Level [Pending] , Calcium Level [Pending] Height (Feet): 5 Height (Inches): 3.00 Weight (Pounds): 172 Objective Cv RR Lungs CTA Abd SNT. BS + +4 Scrotal edema +4 b Leg edema Prasanth Ahumada MD Aug 24, 2017 07:46
[2017-08-24] MEDS ORDERED: COLACE100 MG ORAL (07:50)
[2017-08-24] MEDS ORDERED: MOM30 ML ORAL (07:50)
[2017-08-24] MEDS ORDERED: PROCARDIA XL60 MG ORAL (07:50)
[2017-08-24] MEDS ORDERED: FUROSEMIDE20 M1 ORAL (07:50)
[2017-08-24] MEDS ORDERED: GLUCOPHAGE500 MG ORAL (07:50)
[2017-08-24] MEDS ORDERED: DEPAKOTE250 MG ORAL (07:50)
[2017-08-24] MEDS ORDERED: POTASSIUM CHLO20 ME1 ORAL (07:50)
[2017-08-24 07:55] LABS: ANION GAP 9 mmol/L (5-15); BLOOD UREA NITROGEN 32 mg/dL (7-18); CALCIUM 9.8 MG/DL (8.5-10.1); CARBON DIOXIDE 27 MMOL/L (21-32); CHLORIDE 103 MMOL/L (98-107); CREATININE 1.4 MG/DL (0.55-1.30); POTASSIUM 4.3 MMOL/L (3.5-5.1); SODIUM 139 MMOL/L (136-145)
[2017-08-24 08:00] VITALS: BP 157/74
[2017-08-24] MEDS: Docusate 100mg cap ORAL SCH (09:40)
[2017-08-24] MEDS: metFORMIN 500mg tab ORAL SCH (09:41)
[2017-08-24] MEDS: Heparin 5000 units/ml inj SUBQ SCH (09:47)
[2017-08-24 12:00] VITALS: BP 137/76
--- NOTE | 2017-08-24 23:12 | General Progress Note ---
Assessment/Plan Assessment/Plan Bipolar d/o -Depakote 250mg bid Subjective Date patient seen: Aug 24, 2017 Neurologic/Psychiatric: Reports: anxiety, depressed Allergies: Coded Allergies: CELECOXIB (Verified Allergy, Unknown, 08/19/17) EGG (Verified Allergy, Unknown, 08/19/17) PENICILLINS (Verified Allergy, Unknown, 08/19/17) Subjective the pt is irritable and worried about [place]. Objective Last 24 Hour Vital Signs Date Time Temp Pulse Resp B/P (MAP) Pulse Ox O2 Delivery O2 Flow Rate FiO2 08/24/17 12:00 Room Air 08/24/17 12:00 98.2 75 18 137/76 96 98.2 08/24/17 09:51 70 143/74 08/24/17 08:00 97.3 69 18 157/74 97 97.3 08/24/17 04:00 97.6 77 18 178/97 95 Room Air 97.6 77 08/24/17 00:00 98.0 67 19 147/109 93 Room Air 98.0 67 Intake and Output 08/23/17 08/24/17 19:00 07:00 Intake Total 350 ml 240 ml Balance 350 ml 240 ml Intake Oral 300 ml 240 ml IV Total 50 ml # Voids 2 4 Laboratory Tests 08/24/17 05:50: Sodium Level 139, Potassium Level 4.3, Chloride Level 103, Carbon Dioxide Level 27, Anion Gap 9, Blood Urea Nitrogen 32H, Creatinine 1.4H, Estimat Glomerular Filtration Rate , Glucose Level 83, Calcium Level 9.8 Height (Feet): 5 Height (Inches): 3.00 Weight (Pounds): 172 Girish Beck M.D. Aug 24, 2017 23:12
--- NOTE | 2017-08-26 07:40 | Discharge Summary ---
Discharge Summary Discharge Summary _ DATE OF ADMISSION: 08/21/2017 DATE OF DISCHARGE: 08/24/2017 REASON FOR ADMISSION: 72 years male ,with past medical history significant for diabetes mellitus type 2, hypertensive cardiovascular disease, bipolar disorder, hypercholesterolemia, BPH, status post bilateral hip surgery replacement, resident of [facility], presented to emergency department with right-sided hip pain and generalized weakness. He stated that he might have urinary tract infection. He denied chest pain .shortness of breath, no fever, no chills, no recent fall or trauma and injury to the hip. Upon evaluation in emergency room he was afebrile, no leukocytosis. BUN 22, creatinine 1.3; hemoglobin 12.1 , hematocrit 37.3. Stable electrolytes, and liver enzymes. Troponin was negative, CK 193. Urinalysis was positive for leukocytes esterase. CT of the abdomen and pelvis revealed: 1. Low-lying fused kidneys, lower abdomen. Nonobstructive 5.5 mm stone inferior pole of the right kidney. 2. Large bilateral fat-containing inguinal hernias. Left ureter enters into the large left inguinal hernia before traversing to the urinary bladder. Mild fullness of bilateral renal pelvis without renal obstruction. 3. 2.2 cm diverticula of the right urinary bladder base. 4. Thickening and stranding of the urinary bladder may be cystitis. 5. Prominent bilateral inguinal lymph nodes. Chest x-ray revealed cardiomegaly , bibasilar atelectasis and vascular prominence. Patient admitted with diagnosis of probable UTI, generalized weakness CONSULTANTS: psychiatrist [facility] COURSE: Patient admitted and started on the IV fluids and empiric antibiotics. Urine culture revealed mixed gram-positive organisms. Blood culture were negative. Patient completed a course of antibiotics. Psychiatry evaluation was requested. Patient was diagnosed with bipolar disorder and started on Depakote. Patient was noted to have a massive bilateral lower extremity edema along with scrotal edema. IV fluids were stopped. CT of the abdomen and pelvis was not consistent with liver cirrhosis Echocardiogram revealed ejection fraction 65-70% and right ventricular systolic pressure of 16, no evidence of pericardial effusion ; ECHO was consistent with diastolic congestive heart failure. Patient started on diuresis intravenously. Cardiorenal parameters and volumes were closely monitored. Electrolytes were replaced as needed. Venous duplex bilateral lower extremity was negative for evidence of acute DVT Blood pressure was managed with calcium channel christ. Blood sugar was managed with metformin and remained stable. DVT and GI prophylaxis provided. Supportive care provided. Bowel regimen instituted. Patient was working with physical and occupational therapists. Patient clinically stabilized and was ready for discharge back to [id number] FINAL DIAGNOSES: Urinary tract infection Diastolic congestive heart failure DISCHARGE MEDICATIONS: See Medication Reconciliation list. DISCHARGE INSTRUCTIONS: Patient was discharged to [facility] care. Follow up with medical doctor I have been assigned to dictate discharge summary for this account. I was not involved in the patient's management. Deepika Jerome NP Aug 26, 2017 07:40
--- NOTE | 2017-08-26 22:19 | Diagnostic Imaging Report ---
APPROVED REPORT CPT Code: 48010 Present Symptoms Comments: BILATERAL LEGS PAIN AND SWELLING. BILATERAL: Imaging reveals a patent deep venous system bilaterally. There is no evidence of thrombus within the femoral, popliteal or tibial segments. The greater saphenous veins are also within normal limits. Doppler indicates normal spontaneous flow within these segments. Edema noted in bilateral calves.
== END 2017-08-24 14:00 | disposition home or self-care (01) | DRG 292 ==
LOC: EDBD 09:47 → EMR 10:55 → EDBEDREQ 11:53 → 4W 12:18
DX: I11.0 Hypertensive heart disease with heart failure (principal); N39.0 Urinary tract infection, site not specified; I50.30 Unspecified diastolic (congestive) heart failure; F31.9 Bipolar disorder, unspecified; E78.00 Pure hypercholesterolemia, unspecified; E11.9 Type 2 diabetes mellitus without complications; M25.551 Pain in right hip; Z96.643 Presence of artificial hip joint, bilateral; N50.89 Other specified disorders of the male genital organs; N40.1 Benign prostatic hyperplasia with lower urinary tract symptoms; R39.15 Urgency of urination; R31.9 Hematuria, unspecified
CPT/HCPCS: 36415; 71045; 72192; 80048; 80053; 81003; 82550; 82553; 82962; 83735; 84484; 85025; 87040; 87081; 87086; 93005; 93306; 93970; 99285; J8499

== ENCOUNTER 2017-10-18 09:31 | Inpatient (IN) | payer MEDICARE, OTHER ==
[~2017-10-18] VITALS: Ht 160 cm; Wt 81.6 kg
[~2017-10-18 09:31] MED LIST: ADALAT20 MG ORAL; ATORVASTATIN CA40 MG ORAL; CEPHALEXIN500 M1 ORAL; CHLORTHALIDONE25 MG ORAL; COLACE100 MG ORAL; DEPAKOTE250 MG ORAL; DYRENIUM50 MG PO; FUROSEMIDE20 M1 ORAL; GLUCOPHAGE500 MG ORAL; METFORMIN HCL500 M1 ORAL; MOM30 ML ORAL; POTASSIUM CHLO20 ME1 ORAL; PROCARDIA XL60 MG ORAL; PROSCAR5 MG ORAL; TERAZOSIN HCL1 MG ORAL; TRAZODONE HCL150 MG ORAL
[2017-10-18] MEDS ORDERED: IBUPROFEN600 MG ORAL (09:42)
[2017-10-18] MEDS ORDERED: TERAZOSIN HCL1 MG ORAL (09:42)
[2017-10-18] MEDS ORDERED: TRIAMTERENE-HC1 EAC7 ORAL (09:42)
[2017-10-18] MEDS ORDERED: CHLORTHALIDONE25 MG ORAL (09:42)
[2017-10-18] MEDS ORDERED: ATORVASTATIN CA40 MG ORAL (09:42)
[2017-10-18] MEDS ORDERED: MELATONIN3 MG ORAL (09:42)
[2017-10-18] MEDS ORDERED: CEPHALEXIN500 M1 ORAL (09:42)
[2017-10-18] MEDS ORDERED: TRAZODONE HCL50 MG ORAL (09:42)
[2017-10-18] MEDS ORDERED: PROSCAR5 MG ORAL (09:42)
[2017-10-18 09:52] VITALS: BP 182/86
[2017-10-18 11:08] LABS: BASOPHILS % (AUTO) 1.2 % (0.0-2.0); EOSINOPHILS % (AUTO) 6.4 % (0.0-3.0); HEMATOCRIT 38.9 % (42.0-52.0); HEMOGLOBIN 12.9 G/DL (14.2-18.0); MEAN CORPUSCULAR VOLUME 85 FL (80-99); MONOCYTES % (AUTO) 4.6 % (1.0-10.0); NEUTROPHILS % (AUTO) 59.9 % (45.0-75.0); PLATELET COUNT 184 K/UL (150-450); RED BLOOD COUNT 4.59 M/UL (4.70-6.10); RED CELL DISTRIBUTION WIDTH 12.4 % (11.6-14.8)
[2017-10-18 11:15] LABS: APPEARANCE,URINE CLEAR; BILIRUBIN, URINE NEGATIVE (NEGATIVE); COLOR,URINE PALE YELLOW; GLUCOSE, URINE (UA) NEGATIVE (NEGATIVE); KETONES,URINE NEGATIVE (NEGATIVE); LEUKOCYTE ESTERASE ,URINE NEGATIVE (NEGATIVE); NITRITE,URINE NEGATIVE (NEGATIVE); PH,URINE 6 (4.5-8.0); PROTEIN,URINE NEGATIVE (NEGATIVE); UROBILINOGEN,URINE NORMAL MG/DL (0.0-1.0)
--- NOTE | 2017-10-18 11:17 | Emergency Room Report ---
History of Present Illness General Chief Complaint: Generalized Weakness Source: Patient Present Illness HPI This patient is referred from assisted living facility due to being too difficult to manage at this low level of care. There is no report of fever, trauma, vomiting. The patient is a poor historian. EMR shows admission from August for UTI. History otherwise limited due to clinical condition. Allergies: Coded Allergies: CELECOXIB (Verified Allergy, Unknown, 08/19/17) EGG (Verified Allergy, Unknown, 08/19/17) PENICILLINS (Verified Allergy, Unknown, 08/19/17) Nursing Documentation-[facility] Past Medical History: No History, Except For Hx Hypertension: Yes Hx Diabetes: Yes Hx Cancer: No Hx Gastrointestinal Problems: No Hx Neurological Problems: No Review of Systems Constitutional: Reports: no symptoms Eye: Reports: no symptoms ENT: Reports: no symptoms Respiratory: Reports: no symptoms Cardiovascular: Reports: no symptoms Gastrointestinal: Reports: no symptoms Genitourinary: Reports: no symptoms Musculoskeletal: Reports: no symptoms Skin: Reports: no symptoms Psychiatric: Reports: no symptoms Neurological: Reports: no symptoms Endocrine: Reports: no symptoms Hematologic/Lymphatic: Reports: no symptoms Allergic: Reports: no symptoms All Other Systems: limited Physical Exam Vital Signs Date Time Temp Pulse Resp B/P (MAP) Pulse Ox O2 Delivery O2 Flow Rate FiO2 10/18/17 09:34 98.0 62 18 182/86 98 Room Air 98.1 Sp02 EP Interpretation: reviewed, normal General Appearance: normal inspection, well appearing, no apparent distress, alert, GCS 15, non-toxic, other - unkempt, malodorous Head: normocephalic, atraumatic Eyes: bilateral eye normal inspection, bilateral eye PERRL, bilateral eye EOMI ENT: normal ENT inspection, hearing grossly normal, normal pharynx, no angioedema, normal voice, moist mucus membranes Neck: normal inspection, full range of motion, supple, no meningismus, no bony tend Respiratory: normal inspection, lungs clear, normal breath sounds, no rhonchi, no respiratory distress, no retraction, no accessory muscle use, no wheezing Cardiovascular #1: normal inspection, regular rate, rhythm, no edema Gastrointestinal: normal inspection, normal bowel sounds, non tender, soft, no mass, non-distended Musculoskeletal: gait/station normal, normal range of motion Neurologic: normal inspection, alert, oriented x3, responsive, motor strength/ tone normal Psychiatric: anxious, other - poor insight, limited judgment Suicide Risk Assessment: Suicidal Ideation: No Had intent to initiate attempt: No Pt's plan for suicide attempt: No Has means to complete attempt: No Skin: normal inspection, normal color, no rash, warm/dry Medical Decision Making Diagnostic Impression: Primary Impression: Failure to thrive syndrome, adult ER Course Limited history but patient is unable to be managed at current (assisted) living level of care. On presentation to ED he is malodorous, unkempt. His BUN/ creatinine is slightly elevated and IV NS is ordered. EKG Diagnostic Results EKG Time: 11:12 EP Interpretation: NSR 60, LAD, LVH Rate: normal Rhythm: NSR ST Segments: no acute changes ASA given to the pt in ED: No Rhythm Strip Diag. Results Rhythm Strip Time: 11:16 EP Interpretation: yes Rhythm: NSR Last Vital Signs Date Time Temp Pulse Resp B/P (MAP) Pulse Ox O2 Delivery O2 Flow Rate FiO2 10/18/17 10:05 98.4 10/18/17 09:52 60 18 182/86 98 Room Air Disposition: ADMITTED INPATIENT Condition: Stable Referrals: David Osullivan MD (PCP) Patient Instructions: Headache and Arthritis Anish Kang M.D. Oct 18, 2017 11:17
[2017-10-18 11:32] VITALS: BP 185/78
[2017-10-18 12:02] LABS: ANION GAP 9 mmol/L (5-15); BLOOD UREA NITROGEN 20 mg/dL (7-18); CALCIUM 7.3 MG/DL (8.5-10.1); CARBON DIOXIDE 21 MMOL/L (21-32); CHLORIDE 112 MMOL/L (98-107); CREATININE 0.8 MG/DL (0.55-1.30); POTASSIUM 3.6 MMOL/L (3.5-5.1); SODIUM 142 MMOL/L (136-145)
[2017-10-18 12:07] LABS: ALANINE AMINOTRANSFERASE 15 U/L (12-78); ALBUMIN 2.6 G/DL (3.4-5.0); ALBUMIN/GLOBULIN RATIO 0.8 (1.0-2.7); ALKALINE PHOSPHATASE 53 U/L (46-116); ASPARTATE AMINO TRANSFERASE 24 U/L (15-37); BILIRUBIN,TOTAL 0.4 MG/DL (0.2-1.0)
--- NOTE | 2017-10-18 12:09 | Diagnostic Imaging Report ---
Indication: Chest pain Technique: One view of the chest Comparison: 08/19/2017 Findings: Lungs and pleural spaces are clear. The heart is borderline enlarged. The aorta is tortuous and ectatic. Previously reported interstitial congestion is no longer evident Impression: Borderline cardiomegaly. No acute process
[2017-10-18] MEDS ORDERED: HydrALAZINE 25mg tab ORAL PRN (13:30)
[2017-10-18] MEDS ORDERED: Milk of Magnesia 30ml Ud ORAL PRN (14:45)
--- NOTE | 2017-10-18 15:18 | Consultation ---
Consult Note Consult Note asked to eval for management of BP This patient is referred from assisted living facility due to being too difficult to manage at this low level of care. There is no report of fever, trauma, vomiting. The patient is a poor historian. EMR shows admission from August for UTI. History otherwise limited due to clinical condition. Allergies: CELECOXIB (Verified Allergy, Unknown, 08/19/17) EGG (Verified Allergy, Unknown, 08/19/17) PENICILLINS (Verified Allergy, Unknown, 08/19/17) Past Medical History: No History, Except For Hx Hypertension: Yes Hx Diabetes: Yes interviewed- examined- data reviewed Assessment/Plan HTN OOC FFT DM BPH Hydrate- DC Diuretics 2D echo Monitor BS and BP Norvasc- Hydralazine- Flomax Yomi Bingham MD Oct 18, 2017 15:18
[2017-10-18 15:42] VITALS: BP 153/85
[2017-10-18] MEDS: NovoLOG Insulin Flexpen SUBQ SCH ×2 (16:30→22:09)
[2017-10-18] MEDS: Tamsulosin 0.4mg cap ORAL SCH (17:13)
[2017-10-18] MEDS: Docusate 100mg cap ORAL SCH (17:13)
[2017-10-18 20:00] VITALS: BP 151/80
[2017-10-18] MEDS ORDERED: Terazosin 1mg cap ORAL SCH (21:00)
[2017-10-18] MEDS ORDERED: Atorvastatin 20mg tab ORAL SCH (21:00)
[2017-10-18] MEDS ORDERED: Docusate 100mg cap ORAL SCH (21:00)
[2017-10-18] MEDS: TraZODone 50mg tab ORAL SCH (22:08)
[2017-10-18] MEDS: HydrALAZINE 25mg tab ORAL SCH (22:08)
[2017-10-19] VITALS: BP 143/79
[2017-10-19 04:00] VITALS: BP 154/80
[2017-10-19] MEDS: HydrALAZINE 25mg tab ORAL SCH (06:39)
[2017-10-19] MEDS: NovoLOG Insulin Flexpen SUBQ SCH ×4 (06:42→21:24)
[2017-10-19 07:26] LABS: EOSINOPHILS % (AUTO) 5.6 % (0.0-3.0); HEMOGLOBIN 13.9 G/DL (14.2-18.0); LYMPHOCYTES % (AUTO) 28.1 % (20.0-45.0); MEAN CORPUSCULAR VOLUME 86 FL (80-99); MONOCYTES % (AUTO) 5.2 % (1.0-10.0); PLATELET COUNT 209 K/UL (150-450); RED BLOOD COUNT 4.88 M/UL (4.70-6.10); RED CELL DISTRIBUTION WIDTH 12.4 % (11.6-14.8); WHITE BLOOD COUNT 6.5 K/UL (4.8-10.8)
[2017-10-19 08:12] LABS: % IRON SATURATION 26 % (15-50); IRON 91 ug/dL (50-175); TOTAL IRON BINDING CAPACITY 346 ug/dL (250-450)
[2017-10-19 08:24] LABS: ALANINE AMINOTRANSFERASE 26 U/L (12-78); ALBUMIN 3.8 G/DL (3.4-5.0); ALBUMIN/GLOBULIN RATIO 0.9 (1.0-2.7); ALKALINE PHOSPHATASE 79 U/L (46-116); ANION GAP 5 mmol/L (5-15); ASPARTATE AMINO TRANSFERASE 16 U/L (15-37); BILIRUBIN,TOTAL 0.6 MG/DL (0.2-1.0); BLOOD UREA NITROGEN 19 mg/dL (7-18); CALCIUM 9.4 MG/DL (8.5-10.1); CARBON DIOXIDE 29 MMOL/L (21-32); CHLORIDE 103 MMOL/L (98-107); CHOLESTEROL 249 MG/DL (< 200); CREATININE 1.2 MG/DL (0.55-1.30); FERRITIN 76 NG/ML (8-388); HDL CHOLESTEROL 47 MG/DL (40-60); POTASSIUM 4.1 MMOL/L (3.5-5.1); SODIUM 137 MMOL/L (136-145); TRIGLYCERIDES 169 MG/DL (30-150)
[2017-10-19] MEDS: Docusate 100mg cap ORAL SCH ×3 (08:37→18:03)
[2017-10-19] MEDS: Tamsulosin 0.4mg cap ORAL SCH ×2 (08:37→18:03)
[2017-10-19 08:55] LABS: CREATINE KINASE 136 U/L (26-308); GAMMA GLUTAMYL TRANSPEPTIDASE 25 U/L (5-85); PHOSPHORUS 2.9 MG/DL (2.5-4.9)
[2017-10-19] MEDS ORDERED: Triamterene/Hctz 37.5/25 cap ORAL SCH (09:00)
[2017-10-19] MEDS ORDERED: metFORMIN 500mg tab ORAL SCH (09:00)
--- NOTE | 2017-10-19 09:51 | Nephrology Progress Note ---
Assessment/Plan Problem List: (1) Failure to thrive syndrome, adult (2) HTN (hypertension) (3) BPH (benign prostatic hyperplasia) Assessment HTN OOC- FFT- DM- BPH- Plan Hydrate- DC Diuretics 2D echo pending Monitor BS and BP Norvasc- Hydralazine- Flomax add lipitor Subjective ROS Limited/Unobtainable: No Constitutional: Reports: malaise Objective Objective Last 24 Hour Vital Signs Date Time Temp Pulse Resp B/P (MAP) Pulse Ox O2 Delivery O2 Flow Rate FiO2 10/19/17 08:38 73 166/87 10/19/17 06:39 154/80 10/19/17 04:00 96.3 69 19 154/80 (104) 98 96.3 10/19/17 00:00 97.0 69 19 143/79 (100) 97.0 10/18/17 22:08 138/73 10/18/17 21:00 Room Air 10/18/17 20:00 96.6 67 18 151/80 (103) 96 96.6 10/18/17 15:42 98.7 73 19 153/85 (107) 95 98.7 10/18/17 15:33 Room Air 10/18/17 14:39 56 185/78 10/18/17 12:49 98.4 56 20 185/78 98 Room Air 209.1 10/18/17 11:32 56 20 185/78 98 Room Air 10/18/17 10:05 98.4 10/18/17 09:52 98.1 60 18 182/86 98 Room Air 98.1 Intake and Output 10/18/17 10/19/17 19:00 07:00 Intake Total 150 ml 1730 ml Output Total 0 ml Balance 150 ml 1730 ml Intake Oral 1130 ml IV Total 150 ml 600 ml Output Urine Total 0 ml # Voids 5 Laboratory Tests 10/18/17 10:50: White Blood Count 7.0, Red Blood Count 4.59L, Hemoglobin 12.9L, Hematocrit 38.9L , Mean Corpuscular Volume 85, Mean Corpuscular Hemoglobin 28.1, Mean Corpuscular Hemoglobin Concent 33.2, Red Cell Distribution Width 12.4, Platelet Count 184, Mean Platelet Volume 9.7, Neutrophils (%) (Auto) 59.9, Lymphocytes (% ) (Auto) 28.0, Monocytes (%) (Auto) 4.6, Eosinophils (%) (Auto) 6.4H, Basophils (%) (Auto) 1.2, Urine Color Pale yellow, Urine Appearance Clear, Urine pH 6, Urine Specific [place] 1.020, Urine Protein Negative, Urine Glucose (UA) Negative, Urine Ketones Negative, Urine Occult Blood Negative, Urine Nitrite Negative, Urine Bilirubin Negative, Urine Urobilinogen Normal, Urine Leukocyte Esterase Negative, Urine RBC 0, Urine WBC 0-2, Urine Squamous Epithelial Cells Occasional, Urine Bacteria Occasional, Sodium Level 142, Potassium Level 3.6, Chloride Level 112H, Carbon Dioxide Level 21, Anion Gap 9, Blood Urea Nitrogen 20H, Creatinine 0.8, Estimat Glomerular Filtration Rate , Glucose Level 81, Hemoglobin A1c 5.8, Calcium Level 7.3L, Total Bilirubin 0.4, Aspartate Amino Transf (AST/SGOT) 24, Alanine Aminotransferase (ALT/SGPT) 15, Alkaline Phosphatase 53, Troponin I 0.000, C-Reactive Protein, Quantitative 1.0H, Total Protein 5.9L, Albumin 2.6L, Globulin 3.3, Albumin/Globulin Ratio 0.8L 10/19/17 06:48: White Blood Count 6.5, Red Blood Count 4.88, Hemoglobin 13.9L, Hematocrit 42.0, Mean Corpuscular Volume 86, Mean Corpuscular Hemoglobin 28.5, Mean Corpuscular Hemoglobin Concent 33.1, Red Cell Distribution Width 12.4, Platelet Count 209, Mean Platelet Volume 9.3, Neutrophils (%) (Auto) 60.0, Lymphocytes (%) (Auto) 28.1, Monocytes (%) (Auto) 5.2, Eosinophils (%) (Auto) 5.6H, Basophils (%) (Auto ) 1.0, Sodium Level 137, Potassium Level 4.1, Chloride Level 103, Carbon Dioxide Level 29, Anion Gap 5, Blood Urea Nitrogen 19H, Creatinine 1.2, Estimat Glomerular Filtration Rate , Glucose Level 103, Calcium Level 9.4#, Total Bilirubin 0.6, Aspartate Amino Transf (AST/SGOT) 16, Alanine Aminotransferase ( ALT/SGPT) 26, Alkaline Phosphatase 79, Troponin I 0.000, Total Protein 8.0#, Albumin 3.8, Globulin 4.2, Albumin/Globulin Ratio 0.9L, Uric Acid 6.1, Phosphorus Level 2.9, Magnesium Level 2.1, Iron Level 91, Total Iron Binding Capacity 346, Percent Iron Saturation 26, Unsaturated Iron Binding 255, Ferritin 76, Gamma Glutamyl Transpeptidase 25, Total Creatine Kinase 136, Pro-B- Type Natriuretic Peptide 480H, Triglycerides Level 169H, Cholesterol Level 249H , LDL Cholesterol 174H, HDL Cholesterol 47, Cholesterol/HDL Ratio 5.3H, Vitamin B12 Level 544, Folate 13.9, Thyroid Stimulating Hormone (TSH) 3.877H Height (Feet): 5 Height (Inches): 3.00 Weight (Pounds): 180 General Appearance: no apparent distress Cardiovascular: normal rate Respiratory/Chest: lungs clear Abdomen: soft, distended Yomi Bingham MD Oct 19, 2017 09:51
[2017-10-19] MEDS: HydrALAZINE 50mg tab ORAL SCH ×2 (13:14→22:32)
--- NOTE | 2017-10-19 19:45 | History and Physical Report ---
DATE OF ADMISSION: 10/18/2017 HISTORY OF PRESENT ILLNESS: The patient comes and being admitted for multiple reasons. One of them is that the assisted living cannot handle his needs. Again, another problem is the patient has elevated blood pressure as well as the patient has mild azotemia. The patient also has an electric scooter that he uses for mobility. The patient is also status post fall couple of months ago and sustained a right shoulder pain after that fall. The patient is a [place] . The patient also has chronic pain, generalized pain. He has also had some complaints of reports of headache. Denies nausea, vomiting, or diarrhea. No fever or chills. Denies shortness of breath. Denies cough. Denies abdominal pain. PAST MEDICAL HISTORY: Hyperlipidemia, mood disorder, constipation, BPH, degenerative joint disease, non-insulin dependent diabetes mellitus, hypertension, and status post fall. PAST SURGICAL HISTORY: Bilateral knee replacement, back surgery, and appendectomy. MEDICATIONS: Depakote, Colace, Proscar, Lasix, metformin, nifedipine, terazosin, and hydrochlorothiazide. ALLERGIES: Penicillin and Celebrex. SOCIAL HISTORY: Very remote history of alcohol abuse. Last time use was in 1971. History of smoking. Denies history of drug abuse. FAMILY HISTORY: Noncontributory. REVIEW OF SYSTEMS: HEENT: Does have reported headache occasionally. Denies diplopia. CHEST: Denies shortness of breath. Denies cough. CARDIOVASCULAR: Denies chest pain or orthopnea. GASTROINTESTINAL: Denies nausea, vomiting, or diarrhea. EXTREMITIES: Generalized pain. HEAD NECK SURGEON: No change in vision or speech pattern. He uses scooter for mobility and cane for walking. PHYSICAL EXAMINATION: VITAL SIGNS: Temperature 97, pulse is 69, and blood pressure was 154/80. HEENT: PERRLA. NECK: Supple. No lymphadenopathy. CHEST: Clear to auscultation. CARDIOVASCULAR: Regular rate and rhythm. GASTROINTESTINAL: Soft and distended, but nontender. No organomegaly. EXTREMITY: No edema. Reflexes are equal on both sides. NEUROLOGIC: Motor, does have lower extremity weakness. He has ataxic gait. LABORATORY AND DIAGNOSTIC DATA: Sodium 137, potassium 4.1, BUN of 19, creatinine 1.2, and glucose of 103. WBC of 7, hemoglobin 12.9, and platelets of 184,000. ASSESSMENT/PLAN: 1. Elevated blood pressure. 2. Mild azotemia. 3. Unable for the assisted living to take care of his needs. He needs a SNF placement. He is going to need PT and OT as well. 4. Hypertension and azotemia. I have asked Dr. Bingham to see the patient for management and treatment of that as well. David Osullivan M.D. DR: TAMIKO JOB#: [id number] CC:
[2017-10-19 20:00] VITALS: BP 154/76
[2017-10-19] MEDS: Atorvastatin 20mg tab ORAL SCH (21:20)
[2017-10-19] MEDS: TraZODone 50mg tab ORAL SCH (21:20)
[2017-10-20] VITALS: BP 143/69
[2017-10-20 04:00] VITALS: BP 153/68
[2017-10-20] MEDS: NovoLOG Insulin Flexpen SUBQ SCH ×4 (06:05→21:00)
[2017-10-20] MEDS: HydrALAZINE 50mg tab ORAL SCH ×3 (06:18→21:45)
[2017-10-20 08:00] VITALS: BP 143/75
[2017-10-20] MEDS: Tamsulosin 0.4mg cap ORAL SCH ×2 (08:50→17:20)
[2017-10-20] MEDS: Docusate 100mg cap ORAL SCH ×3 (08:50→17:20)
[2017-10-20] MEDS ORDERED: Lisinopril 10mg tab ORAL SCH (09:00)
--- NOTE | 2017-10-20 11:30 | Nephrology Progress Note ---
Assessment/Plan Problem List: (1) Failure to thrive syndrome, adult (2) HTN (hypertension) (3) BPH (benign prostatic hyperplasia) Assessment HTN OOC- FFT- DM- BPH- Plan DC Hydrate- DC Diuretics 2D echo 65% EjFx Monitor BS and BP Norvasc- Hydralazine- Flomax add lipitor DC planning Subjective ROS Limited/Unobtainable: No Constitutional: Reports: malaise Objective Objective Last 24 Hour Vital Signs Date Time Temp Pulse Resp B/P (MAP) Pulse Ox O2 Delivery O2 Flow Rate FiO2 10/20/17 08:51 143/75 10/20/17 08:50 87 143/75 10/20/17 08:00 96.7 87 20 143/75 (97) 95 96.7 10/20/17 06:18 157/73 10/20/17 04:00 97.3 69 18 153/68 (96) 96 97.3 10/20/17 00:00 98.0 67 18 143/69 (93) 96 98.0 10/19/17 22:32 145/62 10/19/17 21:08 Room Air 10/19/17 20:00 97.8 81 18 154/76 (102) 96 97.8 10/19/17 13:14 156/81 Intake and Output 10/19/17 10/20/17 19:00 07:00 Intake Total 600 ml 880 ml Balance 600 ml 880 ml Intake Oral 480 ml IV Total 600 ml 400 ml # Voids 3 # Bowel Movements 1 5 Height (Feet): 5 Height (Inches): 3.00 Weight (Pounds): 180 General Appearance: no apparent distress Objective no change Yomi Bingham MD Oct 20, 2017 11:30
[2017-10-20 12:00] VITALS: BP 122/70
[2017-10-20 16:00] VITALS: BP 140/73
[2017-10-20] MEDS: Lisinopril 10mg tab ORAL SCH (17:19)
--- NOTE | 2017-10-20 17:29 | General Progress Note ---
Assessment/Plan Problem List: (1) HTN (hypertension) ICD Codes: I10 - Essential (primary) hypertension SNOMED: 34006160 (2) FTT (failure to thrive) in adult ICD Codes: R62.7 - Adult failure to thrive SNOMED: 560311380 (3) BPH (benign prostatic hyperplasia) ICD Codes: N40.0 - Benign prostatic hyperplasia without lower urinary tract symptoms SNOMED: 265849603 Status: progressing Assessment/Plan htn bp is imrpoving bph appetite improved Subjective Allergies: Coded Allergies: CELECOXIB (Verified Allergy, Unknown, 08/19/17) EGG (Verified Allergy, Unknown, 08/19/17) PENICILLINS (Verified Allergy, Unknown, 08/19/17) Subjective generalized pain Objective Last 24 Hour Vital Signs Date Time Temp Pulse Resp B/P (MAP) Pulse Ox O2 Delivery O2 Flow Rate FiO2 10/20/17 17:20 97.0 10/20/17 17:19 118/67 10/20/17 16:00 97.0 84 18 140/73 (95) 96 97.0 10/20/17 13:26 136/71 10/20/17 12:00 98.0 67 20 122/70 (87) 97 98.0 10/20/17 08:51 143/75 10/20/17 08:50 87 143/75 10/20/17 08:00 96.7 87 20 143/75 (97) 95 96.7 10/20/17 06:18 157/73 10/20/17 04:00 97.3 69 18 153/68 (96) 96 97.3 10/20/17 00:00 98.0 67 18 143/69 (93) 96 98.0 10/19/17 22:32 145/62 10/19/17 21:08 Room Air 10/19/17 20:00 97.8 81 18 154/76 (102) 96 97.8 Intake and Output 10/19/17 10/20/17 19:00 07:00 Intake Total 600 ml 880 ml Balance 600 ml 880 ml Intake Oral 480 ml IV Total 600 ml 400 ml # Voids 3 # Bowel Movements 1 5 Height (Feet): 5 Height (Inches): 3.00 Weight (Pounds): 180 Neck: supple Cardiovascular: normal rate Respiratory/Chest: chest wall non-tender Abdomen: soft David Osullivan MD Oct 20, 2017 17:29
[2017-10-20 20:00] VITALS: BP 127/63
[2017-10-20] MEDS: TraZODone 50mg tab ORAL SCH (21:44)
[2017-10-20] MEDS: Atorvastatin 20mg tab ORAL SCH (21:44)
[2017-10-21] VITALS: BP 125/55
[2017-10-21 04:00] VITALS: BP 142/58
[2017-10-21] MEDS: HydrALAZINE 50mg tab ORAL SCH ×3 (05:41→21:08)
[2017-10-21] MEDS: NovoLOG Insulin Flexpen SUBQ SCH ×4 (05:43→20:54)
[2017-10-21] MEDS ORDERED: Chloraseptic Spray 20mL Bottle ORAL PRN (07:45)
[2017-10-21] MEDS ORDERED: Norco 5mg/325mg tab ORAL PRN (07:45)
[2017-10-21 08:00] VITALS: BP 141/69
[2017-10-21] MEDS: Docusate 100mg cap ORAL SCH ×3 (09:00→17:17)
[2017-10-21] MEDS: Tamsulosin 0.4mg cap ORAL SCH ×2 (09:50→17:17)
[2017-10-21] MEDS: Lisinopril 10mg tab ORAL SCH ×2 (09:50→17:17)
--- NOTE | 2017-10-21 11:10 | Nephrology Progress Note ---
Assessment/Plan Problem List: (1) Failure to thrive syndrome, adult (2) HTN (hypertension) (3) BPH (benign prostatic hyperplasia) Assessment HTN OOC- FFT- DM- BPH- Plan DC Hydrate- DC Diuretics 2D echo 65% EjFx Monitor BS and BP Norvasc- Hydralazine- Flomax add lipitor DC planning Subjective ROS Limited/Unobtainable: No Objective Objective Last 24 Hour Vital Signs Date Time Temp Pulse Resp B/P (MAP) Pulse Ox O2 Delivery O2 Flow Rate FiO2 10/21/17 09:50 142/58 10/21/17 09:49 71 142/58 10/21/17 05:41 142/58 10/21/17 04:00 97.7 71 19 142/58 (86) 93 97.7 10/21/17 00:00 97.8 68 18 125/55 (78) 95 97.8 10/20/17 21:45 127/63 10/20/17 20:00 98.0 78 18 127/63 (84) 95 98.0 10/20/17 18:19 97.0 10/20/17 17:20 97.0 18 17:19 118/67 10/20/17 16:00 97.0 84 18 140/73 (95) 96 97.0 10/20/17 13:26 136/71 10/20/17 12:00 98.0 67 20 122/70 (87) 97 98.0 Intake and Output 10/20/17 10/21/17 19:00 07:00 Intake Total 1400 ml 550 ml Balance 1400 ml 550 ml Intake Oral 1000 ml IV Total 400 ml 550 ml # Voids 5 # Bowel Movements 1 Height (Feet): 5 Height (Inches): 3.00 Weight (Pounds): 180 General Appearance: no apparent distress Cardiovascular: normal rate Respiratory/Chest: lungs clear Abdomen: non tender Objective no change Yomi Bingham MD Oct 21, 2017 11:10
[2017-10-21 12:00] VITALS: BP 140/72
--- NOTE | 2017-10-21 14:41 | Cardiology Report ---
APPROVED REPORT EXAM: Two-dimensional and M-mode echocardiogram with Doppler and color Doppler. INDICATION Congestive Heart Failure M-Mode DIMENSIONS IVSd2.2 (0.7-1.1cm)Left Atrium (MM)4.3 (1.6-4.0cm) LVDd3.3 (3.5-5.6cm)Aortic Root3.1 (2.0-3.7cm) PWd2.7 (0.7-1.1cm)Aortic Cusp Exc.1.8 (1.5-2.0cm) IVSs2.4 cm LVDs2.3 (2.5-4.0cm) PWs2.5 cm Technically difficult study due to poor acoustical windows . Normal left ventricular chamber size, systolic function and wall motion to extent visualized. Left ventricular ejection fraction estimated to be 60-65 %. No evidence of left ventricular hypertrophy. No evidence of pericardial effusion All other cardiac chamber sizes are within normal limits. Focal aortic valve sclerosis with adequate cusp excursion. Mildly Thickened mitral valve leaflets with normal excursion. Mildly Mitral annulus and aortic root calcification. Pulmonic valve not well visualized. Normal tricuspid valve structure. IVC at normal size with physiologic collapse. A color flow and spectral Doppler study was performed and revealed: No aortic regurgitation. Trace mitral regurgitation. Mitral diastolic velocities suggest reduced left ventricular relaxation c/w mild LV diastolic dysfunction (Grade I ). Mild tricuspid regurgitation. Tricuspid systolic velocities suggests peak right ventricular systolic pressure of 36 mmHg,consistent with mild pulmonary hypertension. Mild Pulmonic regurgitation present.
--- NOTE | 2017-10-21 14:51 | General Progress Note ---
Assessment/Plan Problem List: (1) HTN (hypertension) ICD Codes: I10 - Essential (primary) hypertension SNOMED: 02711159 (2) FTT (failure to thrive) in adult ICD Codes: R62.7 - Adult failure to thrive SNOMED: 403292134 (3) BPH (benign prostatic hyperplasia) ICD Codes: N40.0 - Benign prostatic hyperplasia without lower urinary tract symptoms SNOMED: 006656971 Status: progressing Assessment/Plan htn bp is imrpoving bph chronic pain needs snf for pt/ot Subjective Allergies: Coded Allergies: CELECOXIB (Verified Allergy, Unknown, 08/19/17) EGG (Verified Allergy, Unknown, 08/19/17) PENICILLINS (Verified Allergy, Unknown, 08/19/17) Subjective generalized pain Objective Last 24 Hour Vital Signs Date Time Temp Pulse Resp B/P (MAP) Pulse Ox O2 Delivery O2 Flow Rate FiO2 10/21/17 14:09 140/72 10/21/17 12:00 98.0 81 18 140/72 (94) 96 98.0 10/21/17 09:50 142/58 10/21/17 09:49 71 142/58 10/21/17 08:00 97.6 86 20 141/69 (93) 95 97.6 10/21/17 05:41 142/58 10/21/17 04:00 97.7 71 19 142/58 (86) 93 97.7 10/21/17 00:00 97.8 68 18 125/55 (78) 95 97.8 10/20/17 21:45 127/63 10/20/17 20:00 98.0 78 18 127/63 (84) 95 98.0 10/20/17 18:19 97.0 10/20/17 17:20 97.0 10/20/17 17:19 118/67 10/20/17 16:00 97.0 84 18 140/73 (95) 96 97.0 Intake and Output 10/20/17 10/21/17 19:00 07:00 Intake Total 1400 ml 550 ml Balance 1400 ml 550 ml Intake Oral 1000 ml IV Total 400 ml 550 ml # Voids 5 # Bowel Movements 1 Height (Feet): 5 Height (Inches): 3.00 Weight (Pounds): 180 Neck: supple Cardiovascular: normal rate Respiratory/Chest: lungs clear Abdomen: soft Hadadz,Ali MD Oct 21, 2017 14:51
[2017-10-21 15:42] VITALS: BP 139/91
[2017-10-21 20:00] VITALS: BP 132/56
[2017-10-21] MEDS: Atorvastatin 20mg tab ORAL SCH (20:56)
[2017-10-21] MEDS: TraZODone 50mg tab ORAL SCH (20:56)
[2017-10-22] VITALS: BP 116/59
[2017-10-22 04:00] VITALS: BP 138/66
[2017-10-22] MEDS: HydrALAZINE 50mg tab ORAL SCH (05:55)
[2017-10-22] MEDS: NovoLOG Insulin Flexpen SUBQ SCH ×2 (06:30→11:30)
[2017-10-22 08:04] VITALS: BP 139/65
[2017-10-22] MEDS: Tamsulosin 0.4mg cap ORAL SCH (08:56)
[2017-10-22] MEDS: Docusate 100mg cap ORAL SCH ×2 (08:56→13:00)
[2017-10-22] MEDS: Lisinopril 10mg tab ORAL SCH (08:56)
[2017-10-22] MEDS ORDERED: CHLORASEPTIC1 SPRAY ORAL (10:11)
[2017-10-22] MEDS ORDERED: LIPITOR20 MG ORAL (10:11)
[2017-10-22] MEDS ORDERED: ACETAMINOPHEN325 M1 ORAL (10:11)
[2017-10-22] MEDS ORDERED: NORCO 5-325 TA1 EACH ORAL (10:12)
[2017-10-22] MEDS ORDERED: LISINOPRIL5 MG ORAL (10:13)
[2017-10-22] MEDS ORDERED: HYDRALAZINE HCL25 M1 ORAL (10:13)
[2017-10-22] MEDS ORDERED: HYDRALAZINE HCL50 MG ORAL (10:13)
[2017-10-22] MEDS ORDERED: TAMSULOSIN HCL0.4 MG ORAL (10:14)
[2017-10-22] MEDS ORDERED: AMLODIPINE BESY10 MG ORAL (10:14)
--- NOTE | 2017-10-22 12:13 | Nephrology Progress Note ---
Assessment/Plan Problem List: (1) Failure to thrive syndrome, adult (2) HTN (hypertension) (3) BPH (benign prostatic hyperplasia) Assessment HTN OOC- FFT- DM- BPH- Plan DC Hydrate- DC Diuretics 2D echo 65% EjFx Monitor BS and BP Norvasc- Hydralazine- Flomax add lipitor DC planning Subjective ROS Limited/Unobtainable: No Objective Objective Last 24 Hour Vital Signs Date Time Temp Pulse Resp B/P (MAP) Pulse Ox O2 Delivery O2 Flow Rate FiO2 10/22/17 09:00 Room Air 10/22/17 08:56 139/65 10/22/17 08:56 79 139/65 10/22/17 08:04 97.3 79 18 139/65 (89) 95 97.3 10/22/17 07:55 97.3 10/22/17 05:55 138/66 10/22/17 04:00 98.0 69 21 138/66 (90) 97 98.0 10/22/17 00:00 97.6 56 20 116/59 (78) 96 97.6 10/21/17 21:08 132/56 10/21/17 20:00 98.8 77 20 132/56 (81) 93 98.8 10/21/17 17:17 139/91 10/21/17 15:42 98.2 79 19 139/91 (107) 97 98.2 10/21/17 14:09 140/72 Intake and Output 10/21/17 10/22/17 19:00 07:00 Intake Total 1640 ml 550 ml Balance 1640 ml 550 ml Intake Oral 1040 ml IV Total 600 ml 550 ml # Voids 4 # Bowel Movements 3 Height (Feet): 5 Height (Inches): 3.00 Weight (Pounds): 180 General Appearance: no apparent distress Cardiovascular: normal rate Respiratory/Chest: lungs clear Abdomen: soft Objective no change Yomi Bingham MD Oct 22, 2017 12:13
[2017-10-22 12:17] VITALS: BP 128/59
--- NOTE | 2017-10-22 13:36 | Consultation ---
History of Present Illness General Date patient seen: Oct 21, 2017 Chief Complaint: Generalized Weakness Present Illness HPI 72 yo male the patient with hx of depression and insomnia has elevated blood pressure as well as the patient has mild azotemia. the pt pw with decrease appetite and fatigue. the pt has dysphoria and anxiety. Allergies: Coded Allergies: CELECOXIB (Verified Allergy, Unknown, 08/19/17) EGG (Verified Allergy, Unknown, 08/19/17) PENICILLINS (Verified Allergy, Unknown, 08/19/17) Medication History Scheduled Amlodipine Besylate* (Amlodipine Besylate*), 10 MG ORAL DAILY, (Reported) Atorvastatin Calcium* (Lipitor*), 20 MG ORAL BEDTIME, (Reported) Chloraseptic [place] (Sm Sore Throat [place]), 1 SPRAY ORAL EVERY 3 HOURS, (Reported ) Divalproex Sodium* (Depakote*), 250 MG ORAL EVERY 12 HOURS Docusate Sodium* (Colace*), 100 MG ORAL EVERY 12 HOURS Finasteride* (Proscar*), 5 MG ORAL DAILY, (Reported) Hydralazine Hcl* (Hydralazine Hcl*), 50 MG ORAL EVERY 8 HOURS, (Reported) Lisinopril (Lisinopril*), 10 MG ORAL BID, (Reported) Tamsulosin Hcl (Tamsulosin Hcl*), 0.4 MG ORAL BID, (Reported) Trazodone Hcl* (Desyrel*), 50 MG ORAL BEDTIME, (Reported) Scheduled PRN Acetaminophen* (Acetaminophen 325MG Tablet*), 650 MG ORAL Q4H PRN for Fever/ Headache/Mild Pain, (Reported) Hydralazine Hcl* (Hydralazine Hcl*), 25 MG ORAL EVERY 4 HOURS PRN for For High Blood Pressure, (Reported) Hydrocodone Bit/Acetaminophen 5-325* (Volborg 5-325*), 1 TAB ORAL Q4H PRN for For Pain, (Reported) Discontinued Medications Atorvastatin Calcium* (Atorvastatin Calcium*), 40 MG ORAL BEDTIME, (Reported) Discontinued Reason: MD discontinued med Cephalexin* (Cephalexin*), 500 MG ORAL EVERY 6 HOURS, (Reported) Discontinued Reason: MD discontinued med Chlorthalidone* (Chlorthalidone*), 25 MG ORAL DAILY, (Reported) Discontinued Reason: MD discontinued med Furosemide* (Lasix*), 20 MG ORAL EVERY 12 HOURS Discontinued Reason: MD discontinued med Ibuprofen* (Motrin*), 600 MG ORAL Q6H PRN for For Pain, (Reported) Discontinued Reason: MD discontinued med Magnesium Hydroxide (Milk of Magnesia), 30 ML ORAL HSPRN PRN Discontinued Reason: MD discontinued med Melatonin (Melatonin), 3 MG ORAL BEDTIME PRN for Insomnia, (Reported) Discontinued Reason: MD discontinued med Metformin Hcl* (Glucophage*), 500 MG ORAL DAILY Discontinued Reason: MD discontinued med Nifedipine (Procardia Xl), 90 MG ORAL DAILY Discontinued Reason: MD discontinued med Potassium Chloride* (K-Dur*), 40 MEQ ORAL DAILY Discontinued Reason: MD discontinued med Terazosin Hcl* (Hytrin*), 2 MG ORAL BEDTIME, (Reported) Discontinued Reason: MD discontinued med Triamterene/Hydrochlorothiazid (Triamterene-Hctz 37.5-25 Mg Cp), 1 CAP ORAL DAILY, (Reported) Discontinued Reason: MD discontinued med Patient History Limited by: medical condition History Provided By: Patient, Medical Record, PMD Healthcare decision maker no Resuscitation status Full Code Advanced Directive on File Past Medical/Surgical History Past Medical/Surgical History: (1) Pain (2) UTI (urinary tract infection) (3) Failure to thrive syndrome, adult (4) HTN (hypertension) (5) BPH (benign prostatic hyperplasia) (6) FTT (failure to thrive) in adult Review of Systems Psychiatric: Reports: prior hx, anxiety, depressed feelings, emotional problems Physical Exam General Appearance: no apparent distress, alert Neurologic: oriented x 3, responsive, depressed affect Last 24 Hour Vital Signs Date Time Temp Pulse Resp B/P (MAP) Pulse Ox O2 Delivery O2 Flow Rate FiO2 10/22/17 12:17 97.7 76 18 128/59 (82) 96 97.7 10/22/17 09:00 Room Air 10/22/17 08:56 139/65 10/22/17 08:56 79 139/65 10/22/17 08:04 97.3 79 18 139/65 (89) 95 97.3 10/22/17 07:55 97.3 10/22/17 05:55 138/66 10/22/17 04:00 98.0 69 21 138/66 (90) 97 98.0 10/22/17 00:00 97.6 56 20 116/59 (78) 96 97.6 8/19/18 21:08 132/56 10/21/17 20:00 98.8 77 20 132/56 (81) 93 98.8 10/21/17 17:17 139/91 10/21/17 15:42 98.2 79 19 139/91 (107) 97 98.2 10/21/17 14:09 140/72 Intake and Output 10/21/17 10/22/17 19:00 07:00 Intake Total 1640 ml 550 ml Balance 1640 ml 550 ml Intake Oral 1040 ml IV Total 600 ml 550 ml # Voids 4 # Bowel Movements 3 Height (Feet): 5 Height (Inches): 3.00 Weight (Pounds): 180 Medications Current Medications Medications (Trade) Dose Ordered Sig/Amy Route PRN Reason Start Time Stop Time Status Last Admin Dose Admin Acetaminophen (Tylenol) 650 mg Q4H PRN ORAL Mild Pain/Temp > 100.5 10/20/17 17:00 11/19/17 16:59 10/22/17 03:35 Acetaminophen/ Hydrocodone Bitart (Vol[place] 5/325) 1 tab Q4H PRN ORAL mod-severe pain (4-10) 10/21/17 07:45 10/28/17 07:44 10/22/17 06:56 Amlodipine Besylate (Norvasc) 10 mg DAILY ORAL 10/19/17 09:00 11/18/17 08:59 10/22/17 08:56 Atorvastatin Calcium (Lipitor) 20 mg BEDTIME ORAL 10/19/17 21:00 11/18/17 20:59 10/21/17 20:56 Dextrose (Dextrose 50%) 25 ml STAT PRN IV Hypoglycemia 10/18/17 13:45 11/17/17 13:44 Dextrose (Dextrose 50%) 50 ml STAT PRN IV Hypoglycemia 10/18/17 13:45 11/17/17 13:44 Divalproex Sodium (Depakote) 250 mg EVERY 12 HOURS ORAL 10/18/17 21:00 11/17/17 20:59 10/22/17 08:57 Docusate Sodium (Colace) 100 mg TID ORAL 10/18/17 18:00 11/17/17 20:59 10/22/17 08:56 Finasteride (Proscar) 5 mg DAILY ORAL 10/19/17 09:00 11/18/17 08:59 10/22/17 08:56 Hydralazine HCl (Apresoline) 25 mg Q4H PRN ORAL bp of 160 syst and over 10/18/17 13:30 11/17/17 13:29 Hydralazine HCl (Apresoline) 50 mg Q8HR ORAL 10/19/17 14:00 11/18/17 13:59 10/22/17 05:55 Insulin Aspart (NovoLOG) BEFORE MEALS AND HS SUBQ 10/18/17 16:30 11/17/17 16:29 10/21/17 20:54 Lisinopril (Zestril) 10 mg BID ORAL 10/20/17 18:00 11/19/17 08:59 10/22/17 08:56 Phenol/Menthol (Chloraseptic) 1 spray Q3H PRN ORAL sore throat 10/21/17 07:45 11/20/17 07:44 10/21/17 14:18 Sodium Chloride 1,000 ml @ 50 mls/hr Q20H IV 10/19/17 14:00 11/17/17 13:59 10/22/17 02:03 Tamsulosin HCl (Flomax) 0.4 mg BID ORAL 10/18/17 18:00 11/17/17 17:59 10/22/17 08:56 Trazodone HCl (Desyrel) 50 mg BEDTIME ORAL 10/18/17 21:00 11/17/17 20:59 10/21/17 20:56 Assessment/Plan Status: stable Assessment/Plan MDD Amxiety trazadone provided ro/Girish Soriano MD Oct 22, 2017 13:35
--- NOTE | 2017-10-22 13:49 | General Progress Note ---
Assessment/Plan Status: stable, progressing Assessment/Plan MDD Amxiety trazadone provided ro/st Subjective Date patient seen: Oct 22, 2017 Neurologic/Psychiatric: Reports: anxiety, depressed, emotional problems Allergies: Coded Allergies: CELECOXIB (Verified Allergy, Unknown, 08/19/17) EGG (Verified Allergy, Unknown, 08/19/17) PENICILLINS (Verified Allergy, Unknown, 08/19/17) Objective Last 24 Hour Vital Signs Date Time Temp Pulse Resp B/P (MAP) Pulse Ox O2 Delivery O2 Flow Rate FiO2 10/22/17 12:17 97.7 76 18 128/59 (82) 96 97.7 10/22/17 09:00 Room Air 10/22/17 08:56 139/65 10/22/17 08:56 79 139/65 10/22/17 08:04 97.3 79 18 139/65 (89) 95 97.3 10/22/17 07:55 97.3 10/22/17 05:55 138/66 10/22/17 04:00 98.0 69 21 138/66 (90) 97 98.0 10/22/17 00:00 97.6 56 20 116/59 (78) 96 97.6 10/21/17 21:08 132/56 10/21/17 20:00 98.8 77 20 132/56 (81) 93 98.8 10/21/17 17:17 139/91 10/21/17 15:42 98.2 79 19 139/91 (107) 97 98.2 10/21/17 14:09 140/72 Intake and Output 10/21/17 10/22/17 19:00 07:00 Intake Total 1640 ml 550 ml Balance 1640 ml 550 ml Intake Oral 1040 ml IV Total 600 ml 550 ml # Voids 4 # Bowel Movements 3 Height (Feet): 5 Height (Inches): 3.00 Weight (Pounds): 180 General Appearance: no apparent distress, alert Neurologic: oriented x 3, responsive, depressed affect Girish Beck MD Oct 22, 2017 13:49
--- NOTE | 2017-10-24 08:54 | Discharge Summary ---
Discharge Summary Discharge Summary _ DATE OF ADMISSION: 10/18/2017 DATE OF DISCHARGE: 10/22/2017 REASON FOR ADMISSION: 72 years old male with past medical history of hypertension, diabetes mellitus, BPH, was sent from assisted living due to difficulties to manage at that level of care. No reports of fever, trauma, vomiting or diarrhea. Patient by himself was a poor historian. Patient had prior admission in August for urinary tract infection. Upon evaluation in emergency department blood pressure was elevated 182/86. Laboratory workup revealed no leukocytosis , stable hemoglobin and hematocrit. Troponin negative. EKG revealed normal sinus rhythm, no acute ischemic changes. Urinalysis negative for evidence of UTI. Chest x-ray revealed no acute cardiopulmonary pathology. BUN 20, creatinine 0.8. Patient admitted with hy[ertension out of control, failure to thrive in adult, BPH , diabetes. CONSULTANTS: grain receiver Dr. Bingham psychiatrist [facility] COURSE: Patient admitted to medical surgical floor. Head Machine Feeder consulted for blood pressure management. Nephrologic optimized antihypertensive regimen to keep blood pressure under control. Patient was on multiply regimen of antihypertensive. Echocardiogram revealed preserved ejection fraction of 60-65% and right ventricular systolic pressure of 36 consistent with a mild pulmonary hypertension. Lipid panel revealed elevated total cholesterol, elevated LDL and elevated triglycerides. Patient started on statin. Patient was on cardiac low-fat low-cholesterol diabetic diet. Renal parameters and electrolytes were closely monitored. Electrolytes corrected as needed. Nephrotoxins were avoided. Venous duplex bilateral lower extremities was negative. Patient was continued on Proscar and Flomax , no difficulties with voiding. Blood sugar was managed with metformin. Sliding scale of insulin was on board as needed. Hemoglobin A1c at goal -5.8. Bowel regimen instituted . Pain management was addressed. Supportive care provided . Psychiatrist seen and evaluated patient , and diagnosed patient with major depressive disorder and anxiety disorder. Reality orientation and supportive therapy provided. Patient was working with physical and occupational therapists. Patient required placement to group home facility for further skilled physical .occupational sessions. Nutritional assessment was done. Patient was consuming 100% of food provided . Patient appeared well-nourished. No need for additional nutritional supplements. Blood pressure stabilized. Patient was stable for discharge to group home facility for continuation of care. FINAL DIAGNOSES: Hypertension out of control/ probably hypertensive urgency - resolved Failure to thrive in adult BPH Diabetes mellitus Mixed hyperlipidemia Major depressive disorder Anxiety disorder DISCHARGE MEDICATIONS: See Medication Reconciliation list. DISCHARGE INSTRUCTIONS: Patient discharged to group home facility/[facility]. Follow up with medical doctor at the facility I have been assigned to dictate discharge summary for this account. I was not involved in the patient's management. Deepika Jerome NP Oct 24, 2017 08:54
--- NOTE | 2017-10-26 00:46 | Cardiology Report ---
APPROVED REPORT EKG Measurement Heart [id number] Normal sinus rhythm Left axis deviation Left ventricular hypertrophy with QRS widening and repolarization abnormality Septal infarct, age undetermined Abnormal ECG
== END 2017-10-22 13:00 | DRG 305 ==
LOC: EDUNIT# 09:31 → EDBD 09:31 → EMR 09:58 → 4E 10:58 → EDBEDREQ 12:14
DX: I16.0 Hypertensive urgency (principal); R62.7 Adult failure to thrive; I10 Essential (primary) hypertension; N40.0 Benign prostatic hyperplasia without lower urinary tract symptoms; Z88.0 Allergy status to penicillin; Z88.8 Allergy status to other drugs, medicaments and biological substances; E11.9 Type 2 diabetes mellitus without complications; F32.9 Major depressive disorder, single episode, unspecified; F41.9 Anxiety disorder, unspecified; G89.29 Other chronic pain; M19.90 Unspecified osteoarthritis, unspecified site; Z91.81 History of falling; Z96.653 Presence of artificial knee joint, bilateral; Z66 Do not resuscitate; E78.2 Mixed hyperlipidemia
CPT/HCPCS: 36415; 71045; 80053; 80061; 80164; 81001; 82550; 82607; 82728; 82746; 82962; 82977; 83036; 83540; 83550; 83735; 83880; 84100; 84443; 84484; 84550; 85025; 86140; 87081; 87324; 93005; 93306; 93970; 99283; J1815

== ENCOUNTER 2018-03-22 14:58 | Inpatient (IN) | payer MEDICARE, MEDICAID ==
[~2018-03-22] VITALS: Ht 172.7 cm; Wt 81.6 kg
[~2018-03-22 14:58] MED LIST changes: +ACETAMINOPHEN325 M1 ORAL; +AMLODIPINE BESY10 MG ORAL; +CHLORASEPTIC1 SPRAY ORAL; +HYDRALAZINE HCL25 M1 ORAL; +HYDRALAZINE HCL50 MG ORAL; +IBUPROFEN600 MG ORAL; +LIPITOR20 MG ORAL; +LISINOPRIL5 MG ORAL; +MELATONIN3 MG ORAL; +NORCO 5-325 TA1 EACH ORAL; +TAMSULOSIN HCL0.4 MG ORAL; +TRAZODONE HCL50 MG ORAL; +TRIAMTERENE-HC1 EAC7 ORAL
--- NOTE | 2018-03-22 15:16 | NUR ---
ED Nurse Note: PT BROUGHT IN BY AMBULANCE FROM [facility]. AOX4. PT C/O LEFT LEG SWELLING, REDNESS, AND WARMTH X FEW YEARS. PER EMS, PT HAS A CONFIRMED DVT IN LLE. POSITIVE TAWANNA'S SIGN. FULL ROM OF EXTREMITY, SENSATION AND CIRCULATION INTACT, CAP REFILL <3 SECONDS, AND MUSCLE STRENGTH 5/5.
[2018-03-22 15:19] VITALS: BP 142/49
--- NOTE | 2018-03-22 15:32 | Emergency Room Report ---
History of Present Illness General Chief Complaint: General Complaint Source: Patient Present Illness HPI diagnosed with left leg DVT earlier today. Complains with mild pain. no numbness /tingling. No CP or SOB. Referred here by Dr. Osullivan for eval and treatment Allergies: Coded Allergies: CELECOXIB (Verified Allergy, Unknown, 08/19/17) EGG (Verified Allergy, Unknown, 08/19/17) PENICILLINS (Verified Allergy, Unknown, 08/19/17) Patient History Past Medical History: see triage record, old chart reviewed Nursing Documentation-[facility] Past Medical History: No History, Except For Hx Cardiac Problems: Yes - Hypokalemia Hx Hypertension: Yes Hx Pacemaker: No Hx Diabetes: Yes Hx Cancer: No Hx Gastrointestinal Problems: No - BPH History Of Psychiatric Problem: Yes - major depression, psychosis Hx Neurological Problems: No - generalized weakness Review of Systems All Other Systems: negative except mentioned in HPI Physical Exam Vital Signs Date Time Temp Pulse Resp B/P (MAP) Pulse Ox O2 Delivery O2 Flow Rate FiO2 03/22/18 14:54 98.4 72 16 112/64 93 Room Air General Appearance: well appearing, no apparent distress Head: normocephalic, atraumatic ENT: hearing grossly normal, normal voice Neck: full range of motion, supple Respiratory: no respiratory distress, speaking full sentences Musculoskeletal: calf tenderness Neurologic: alert, normal gait Medical Decision Making Diagnostic Impression: Primary Impression: DVT (deep venous thrombosis) ER Course patient without symptoms. no sob. no evidence of PE on exam. not hypoxic or tachycardic. Discussed with Pharmacy. Okay with regular 1mg/kg dose BID for Lovenox. Laboratory Tests Test 03/22/18 16:07 White Blood Count 8.8 K/UL (4.8-10.8) Red Blood Count 4.46 M/UL (4.70-6.10) L Hemoglobin 13.1 G/DL (14.2-18.0) L Hematocrit 38.4 % (42.0-52.0) L Mean Corpuscular Volume 86 FL (80-99) Mean Corpuscular Hemoglobin 29.4 PG (27.0-31.0) Mean Corpuscular Hemoglobin Concent 34.1 G/DL (32.0-36.0) Red Cell Distribution Width 12.5 % (11.6-14.8) Platelet Count 206 K/UL (150-450) Mean Platelet Volume 8.8 FL (6.5-10.1) Neutrophils (%) (Auto) 64.7 % (45.0-75.0) Lymphocytes (%) (Auto) 24.3 % (20.0-45.0) Monocytes (%) (Auto) 6.0 % (1.0-10.0) Eosinophils (%) (Auto) 4.1 % (0.0-3.0) H Basophils (%) (Auto) 0.8 % (0.0-2.0) Prothrombin Time 10.3 SEC (9.30-11.50) Prothrombin Time INR 1.0 (0.9-1.1) PTT 25 SEC (23-33) Sodium Level 138 MMOL/L (136-145) Potassium Level 3.6 MMOL/L (3.5-5.1) Chloride Level 100 MMOL/L (98-107) Carbon Dioxide Level 29 MMOL/L (21-32) Anion Gap 9 mmol/L (5-15) Blood Urea Nitrogen 28 mg/dL (7-18) H Creatinine 1.5 MG/DL (0.55-1.30) H Estimate Glomerular Filtration Rate mL/min (>60) Glucose Level 124 MG/DL (74-106) H Calcium Level 10.1 MG/DL (8.5-10.1) Total Bilirubin 0.3 MG/DL (0.2-1.0) Aspartate Amino Transferase (AST) 21 U/L (15-37) Alanine Aminotransferase (ALT) 33 U/L (12-78) Alkaline Phosphatase 120 U/L (46-116) H Total Protein 8.7 G/DL (6.4-8.2) H Albumin 4.1 G/DL (3.4-5.0) Globulin 4.6 g/dL Albumin/Globulin Ratio 0.9 (1.0-2.7) L EKG Diagnostic Results EKG Time: 15:58 Rate: normal Rhythm: NSR ST Segments: no acute changes Last Vital Signs Date Time Temp Pulse Resp B/P (MAP) Pulse Ox O2 Delivery O2 Flow Rate FiO2 03/22/18 15:19 98.5 69 16 142/49 98 Room Air Disposition: ADMITTED INPATIENT Condition: Serious Physician Consult: Dr. Osullivan will accept admission NAILA BOYER Mar 22, 2018 15:32
--- NOTE | 2018-03-22 16:03 | NUR ---
ED Nurse Note: BLOOD DRAWN AND SENT TO LAB.
[2018-03-22 16:24] LABS: BASOPHILS % (AUTO) 0.8 % (0.0-2.0); EOSINOPHILS % (AUTO) 4.1 % (0.0-3.0); HEMATOCRIT 38.4 % (42.0-52.0); HEMOGLOBIN 13.1 G/DL (14.2-18.0); LYMPHOCYTES % (AUTO) 24.3 % (20.0-45.0); MEAN CORPUSCULAR VOLUME 86 FL (80-99); NEUTROPHILS % (AUTO) 64.7 % (45.0-75.0); PLATELET COUNT 206 K/UL (150-450); RED BLOOD COUNT 4.46 M/UL (4.70-6.10); RED CELL DISTRIBUTION WIDTH 12.5 % (11.6-14.8); WHITE BLOOD COUNT 8.8 K/UL (4.8-10.8)
[2018-03-22] MEDS ORDERED: CHLORTHALIDONE25 MG ORAL (16:30)
[2018-03-22 16:32] LABS: ANION GAP 9 mmol/L (5-15); BLOOD UREA NITROGEN 28 mg/dL (7-18); CALCIUM 10.1 MG/DL (8.5-10.1); CARBON DIOXIDE 29 MMOL/L (21-32); CHLORIDE 100 MMOL/L (98-107); CREATININE 1.5 MG/DL (0.55-1.30); POTASSIUM 3.6 MMOL/L (3.5-5.1); SODIUM 138 MMOL/L (136-145)
[2018-03-22] MEDS ORDERED: NIFEDIPINE ER60 M3 ORAL (16:34)
[2018-03-22] MEDS ORDERED: MELATONIN3 M2 PO (16:34)
[2018-03-22] MEDS ORDERED: DUONEB 0.5-3(2.53 ML HHN (16:34)
[2018-03-22] MEDS ORDERED: IBUPROFEN600 MG ORAL (16:34)
[2018-03-22] MEDS ORDERED: METFORMIN HCL500 M1 ORAL (16:34)
[2018-03-22] MEDS ORDERED: FUROSEMIDE20 M1 ORAL (16:34)
[2018-03-22] MEDS ORDERED: MOM30 ML ORAL (16:34)
[2018-03-22] MEDS ORDERED: POTASSIUM CHLO10 ME3 ORAL (16:35)
[2018-03-22] MEDS ORDERED: ROBITUSSIN COU118 M1 PO (16:35)
[2018-03-22] MEDS ORDERED: SAW PALMETTO160 MG PO (16:35)
[2018-03-22] MEDS ORDERED: TERAZOSIN HCL1 MG ORAL (16:36)
[2018-03-22] MEDS ORDERED: DESITIN113 GM (16:36)
[2018-03-22 16:37] LABS: ALANINE AMINOTRANSFERASE 33 U/L (12-78); ALBUMIN 4.1 G/DL (3.4-5.0); ALBUMIN/GLOBULIN RATIO 0.9 (1.0-2.7); ALKALINE PHOSPHATASE 120 U/L (46-116); ASPARTATE AMINO TRANSFERASE 21 U/L (15-37); BILIRUBIN,TOTAL 0.3 MG/DL (0.2-1.0)
[2018-03-22] MEDS ORDERED: Warfarin Sodium 5mg ORAL ONE (17:00)
[2018-03-22] MEDS ORDERED: Enoxaparin 80mg Inj SUBQ ONE (17:00)
[2018-03-22] MEDS ORDERED: ATORVASTATIN CA40 MG ORAL (17:44)
[2018-03-22] MEDS ORDERED: HYTRIN2 MG PO (17:51)
[2018-03-22] MEDS ORDERED: POTASSIUM CHLO20 ME1 ORAL (17:51)
[2018-03-22 18:33] VITALS: BP 124/53
--- NOTE | 2018-03-22 19:12 | NUR ---
ED Nurse Note: CALLED [facility] FOR REPORT. RN NOT AVAILABLE TO TAKE REPORT. PER [facility] UNIT, CALL BACK LATER.
--- NOTE | 2018-03-22 19:28 | NUR ---
ED Nurse Note: REPORT GIVEN TO SIMIN SCHMITT RN.
--- NOTE | 2018-03-22 19:30 | NUR ---
ED Nurse Note: Received patient from KANDICE Mendoza. Patient AO4. NAD. VSS.
--- NOTE | 2018-03-22 20:10 | NUR ---
TRANSFER TO FLOOR: Patient transferred to Med Surg 411-1 as ordered, per MD Shi . Report given to KANDICE Yuan. Belongings list completed with receiving RN. Pt AO4. SHIRLENE. VSS
[2018-03-22 20:15] VITALS: BP 148/71
--- NOTE | 2018-03-22 20:15 | NUR ---
NURSE NOTES: Pt received from KANDICE Brambila alert and oriented x4 with no complaints or s/s of pain, SOB, or n/v. Pt had no IV site upon admission and is refusing to have another IV put in. Bed in lowest position, call light and belongings within reach. No wounds upon admission. Belongings with patient upon admission, signed and accounted for with transferring RN. Pt had knife in his belongings, RN advised pt that he cannot have it at the bedside for safety, pt verbalized understanding. RN placed knife in belongings bag and placed it in nurse's station for safekeeping per Spinning [employer]er [employer] and Security. Pt had no home meds with him upon admission.
--- NOTE | 2018-03-22 20:33 | NUR ---
NURSE NOTES: Pt asked for sleeping pill PRN to help him sleep. RN left message for Dr. Osullivan regarding admission orders and sleeping pill PRN, currently awaiting call back. Will continue to monitor.
--- NOTE | 2018-03-22 20:45 | NUR ---
NURSE NOTES: RN obtained admit orders from Dr. Osullivan, will carry out orders.
[2018-03-22] MEDS ORDERED: Milk of Magnesia 30ml Ud ORAL PRN (22:15)
[2018-03-22] MEDS ORDERED: Albuterol/Ipratropium 3ml neb HHN PRN (22:15)
[2018-03-22] MEDS: Docusate 100mg cap ORAL SCH (22:45)
[2018-03-22] MEDS: Atorvastatin 80mg tab ORAL SCH (22:45)
[2018-03-23] VITALS (8 sets, daily range): BP systolic 152–164; BP diastolic 54–85
[2018-03-23] MEDS: Zolpidem 5mg tab ORAL PRN ×2 (00:15→22:03)
--- NOTE | 2018-03-23 01:45 | History and Physical Report ---
DATE OF ADMISSION: 03/22/2018 HISTORY OF PRESENT ILLNESS: The patient is admitted for acute deep vein thrombosis. The patient also has leg edema. Denies nausea, vomiting, or diarrhea. No fever or chills. Denies shortness of breath. Denies cough. Denies hemoptysis. PAST MEDICAL HISTORY: Lower extremity weakness, constipation, BPH, insomnia, NIDDM, hypertension, degenerative joint disease, and hyperlipidemia. PAST SURGICAL HISTORY: Denies. MEDICATIONS: Finasteride, Colace, atorvastatin, melatonin, metformin, nifedipine, antacids, , and Proscar. ALLERGIES: Celebrex, , and penicillin. FAMILY HISTORY: Noncontributory. SOCIAL HISTORY: No history of smoking, alcohol, or illicit drugs. REVIEW OF SYSTEMS: HEENT: Denies headaches. RESPIRATORY: Denies shortness of breath. Denies cough. CARDIOVASCULAR: Denies chest pain. No orthopnea. GASTROINTESTINAL: Denies nausea, vomiting, or diarrhea. EXTREMITIES: The patient has generalized pain, which is uncontrolled. Has leg edema. CENTRAL NERVOUS SYSTEM: No change in vision or speech pattern. PHYSICAL EXAMINATION: VITAL SIGNS: Temperature is 98.4, pulse of 72, and blood pressure 112/64. HEENT: PERRLA. NECK: Supple. No lymphadenopathy. CHEST: Clear to auscultation. CARDIOVASCULAR: Regular rate and rhythm. No murmurs or extra sounds. GASTROINTESTINAL: Soft and nontender. No organomegaly. EXTREMITIES: A 1+ edema in the lower extremities. CENTRAL NERVOUS SYSTEM: No change in vision or speech pattern. Has lower extremity weakness. Mostly wheelchair bound. Reflexes equal on both sides. LABORATORY DATA: WBC of 8.8, hemoglobin 13.1, and platelets of 206,000. Sodium 138, potassium 3.6, BUN of 20, creatinine 1.5, and glucose of 124. ASSESSMENT AND PLAN: Acute DVT on the ultrasound done at the long term as well as azotemia. I have asked Dr. Bingham, Dr. Gonzales, and Dr. Tony Byers to see the patient for the azotemia as well as for DVT treatment. David Osullivan M.D. DR: TAMIKO JOB#: [id number] CC:
[2018-03-23] MEDS: Enoxaparin 80mg Inj SUBQ SCH ×2 (04:58→17:23)
--- NOTE | 2018-03-23 05:30 | NUR ---
NURSE NOTES: Dr. Osullivan notified of pt's refusal to have IV inserted.
--- NOTE | 2018-03-23 07:53 | NUR ---
HAND-OFF: Report given to [address] LVN.
--- NOTE | 2018-03-23 08:00 | NUR ---
NURSE NOTES: received patient A/A/Ox4, verbally responsive, resting in bed calm and comfortable. No c/o pain/discomfort noted. patient stated that he uses cane to ambulate. patient had refused to have an IV access place in, MD aware. keep bed in lowest positionand siderails are up x2. call light is within reach. will cont to monitor.
[2018-03-23 08:25] LABS: ALANINE AMINOTRANSFERASE 40 U/L (12-78); ALBUMIN 3.8 G/DL (3.4-5.0); ALBUMIN/GLOBULIN RATIO 0.9 (1.0-2.7); ALKALINE PHOSPHATASE 110 U/L (46-116); ANION GAP 9 mmol/L (5-15); ASPARTATE AMINO TRANSFERASE 20 U/L (15-37); BILIRUBIN,TOTAL 0.4 MG/DL (0.2-1.0); BLOOD UREA NITROGEN 22 mg/dL (7-18); CALCIUM 9.8 MG/DL (8.5-10.1); CARBON DIOXIDE 29 MMOL/L (21-32); CHLORIDE 100 MMOL/L (98-107); CREATININE 1.3 MG/DL (0.55-1.30); POTASSIUM 3.7 MMOL/L (3.5-5.1); SODIUM 138 MMOL/L (136-145)
[2018-03-23 08:36] LABS: BASOPHILS % (AUTO) 0.7 % (0.0-2.0); EOSINOPHILS % (AUTO) 3.5 % (0.0-3.0); HEMATOCRIT 37.4 % (42.0-52.0); HEMOGLOBIN 12.7 G/DL (14.2-18.0); LYMPHOCYTES % (AUTO) 24.8 % (20.0-45.0); MEAN CORPUSCULAR VOLUME 86 FL (80-99); PLATELET COUNT 222 K/UL (150-450); RED BLOOD COUNT 4.34 M/UL (4.70-6.10); RED CELL DISTRIBUTION WIDTH 12.9 % (11.6-14.8); WHITE BLOOD COUNT 7.7 K/UL (4.8-10.8)
[2018-03-23] MEDS: Docusate 100mg cap ORAL SCH ×2 (08:36→21:02)
[2018-03-23] MEDS: metFORMIN 500mg tab ORAL SCH (08:37)
--- NOTE | 2018-03-23 13:06 | NUR ---
CASE MANAGEMENT: INITIAL REVIEW 73 YO M YIFAN FROM [facility] CC: ABNORMAL US EXAM OF LLE PMHx: HYPOKALEMIA. MAJOR DEPRESSION. HTN. DM. GEN WEAKNESS. SI:DVT LEFT LEG T 98.4 HR 72 RR 16 B/P 112/64 SATS 93% ON RA BUN 22 GLUCOSE 131 IS: LOVENOX SUBQ X1 COUMADIN PO X1 PATIENT ADMITTED TO MED/SURG 03/22/2018 @ 8728 DCP: PATIENT TO BE DISCHARGED TO SNF ONCE MEDICALLY CLEARED. Addendum: 03/24/18 at 1315 by Shana Judd INTERQUAL MET FOR ACUTE
--- NOTE | 2018-03-23 13:33 | Cardiology Report ---
APPROVED REPORT EKG Measurement Heart [id number] Sinus rhythm with 1st degree AV block Left axis deviation Left bundle branch block Abnormal ECG
--- NOTE | 2018-03-23 17:41 | Pulmonology Progress Note ---
Assessment/Plan Assessment/Plan Pulmonary Consultation Note Chief Complaint: Leg swelling HPI Patient was diagnosed with left leg DVT [facility] while in [facility]. Complains with mild pain. no numbness/tingling. No CP or SOB. Allergies: CELECOXIB (Verified Allergy, Unknown, 08/19/17) EGG (Verified Allergy, Unknown, 08/19/17) PENICILLINS (Verified Allergy, Unknown, 08/19/17) Past Medical History: DM, HTN, HL, BPH, Leg weakness, Depression/Psychosis All Other Systems: negative except mentioned in HPI Objective Vital Signs Noted and stable General Appearance: well appearing, no apparent distress Head: normocephalic, atraumatic ENT: hearing grossly normal, normal voice Neck: full range of motion, supple Respiratory: no respiratory distress, speaking full sentences Musculoskeletal: calf tenderness Neurologic: alert, normal gait Impression: DVT (deep venous thrombosis) DM HTN HL BPH Chronic weakness Plan 1mg/kg dose BID for Lovenox. Oxygen PRN MOWER SHARPENER medications Laboratory Tests Test 03/22/18 16:07 White Blood Count 8.8 K/UL (4.8-10.8) Red Blood Count 4.46 M/UL (4.70-6.10) L Hemoglobin 13.1 G/DL (14.2-18.0) L Hematocrit 38.4 % (42.0-52.0) L Mean Corpuscular Volume 86 FL (80-99) Mean Corpuscular Hemoglobin 29.4 PG (27.0-31.0) Mean Corpuscular Hemoglobin Concent 34.1 G/DL (32.0-36.0) Red Cell Distribution Width 12.5 % (11.6-14.8) Platelet Count 206 K/UL (150-450) Mean Platelet Volume 8.8 FL (6.5-10.1) Neutrophils (%) (Auto) 64.7 % (45.0-75.0) Lymphocytes (%) (Auto) 24.3 % (20.0-45.0) Monocytes (%) (Auto) 6.0 % (1.0-10.0) Eosinophils (%) (Auto) 4.1 % (0.0-3.0) H Basophils (%) (Auto) 0.8 % (0.0-2.0) Prothrombin Time 10.3 SEC (9.30-11.50) Prothrombin Time INR 1.0 (0.9-1.1) PTT 25 SEC (23-33) Sodium Level 138 MMOL/L (136-145) Potassium Level 3.6 MMOL/L (3.5-5.1) Chloride Level 100 MMOL/L (98-107) Carbon Dioxide Level 29 MMOL/L (21-32) Anion Gap 9 mmol/L (5-15) Blood Urea Nitrogen 28 mg/dL (7-18) H Creatinine 1.5 MG/DL (0.55-1.30) H Estimate Glomerular Filtration Rate mL/min (>60) Glucose Level 124 MG/DL (74-106) H Calcium Level 10.1 MG/DL (8.5-10.1) Total Bilirubin 0.3 MG/DL (0.2-1.0) Aspartate Amino Transferase (AST) 21 U/L (15-37) Alanine Aminotransferase (ALT) 33 U/L (12-78) Alkaline Phosphatase 120 U/L (46-116) H Total Protein 8.7 G/DL (6.4-8.2) H Albumin 4.1 G/DL (3.4-5.0) Globulin 4.6 g/dL Albumin/Globulin Ratio 0.9 (1.0-2.7) L EKG Time: 15:58 Rate: normal Rhythm: NSR ST Segments: no acute changes Subjective ROS Limited/Unobtainable: No Allergies: Coded Allergies: CELECOXIB (Verified Allergy, Unknown, 08/19/17) EGG (Verified Allergy, Unknown, 08/19/17) PENICILLINS (Verified Allergy, Unknown, 08/19/17) Objective Last 24 Hour Vital Signs Date Time Temp Pulse Resp B/P (MAP) Pulse Ox O2 Delivery O2 Flow Rate FiO2 03/23/18 16:00 97.3 70 19 152/77 (102) 97 03/23/18 12:46 155/68 (97) 03/23/18 12:00 97.4 72 18 164/72 (102) 95 03/23/18 09:00 Room Air 03/23/18 08:38 71 153/54 (87) 03/23/18 08:38 71 153/54 03/23/18 08:00 98.2 66 18 164/63 (96) 96 03/23/18 04:00 97.5 75 19 155/85 (108) 96 03/23/18 00:00 97.9 72 20 155/78 (103) 95 03/22/18 21:00 Room Air 03/22/18 20:34 Room Air 03/22/18 20:15 98.0 72 20 148/71 (96) 96 03/22/18 20:10 98.3 64 15 124/53 97 Room Air 03/22/18 18:33 98.3 64 15 124/53 97 Room Air Intake and Output 03/22/18 03/23/18 18:59 06:59 Intake Total 140 ml Output Total 450 ml Balance -310 ml Intake Oral 140 ml Output Urine Total 450 ml # Voids 1 4 # Bowel Movements 1 Laboratory Tests 03/23/18 07:00: White Blood Count 7.7, Red Blood Count 4.34L, Hemoglobin 12.7L, Hematocrit 37.4L , Mean Corpuscular Volume 86, Mean Corpuscular Hemoglobin 29.2, Mean Corpuscular Hemoglobin Concent 33.9, Red Cell Distribution Width 12.9, Platelet Count 222, Mean Platelet Volume 8.9, Neutrophils (%) (Auto) 65.0, Lymphocytes (% ) (Auto) 24.8, Monocytes (%) (Auto) 6.0, Eosinophils (%) (Auto) 3.5H, Basophils (%) (Auto) 0.7, Sodium Level 138, Potassium Level 3.7, Chloride Level 100, Carbon Dioxide Level 29, Anion Gap 9, Blood Urea Nitrogen 22H, Creatinine 1.3, Estimat Glomerular Filtration Rate , Glucose Level 131H, Calcium Level 9.8, Total Bilirubin 0.4, Aspartate Amino Transf (AST/SGOT) 20, Alanine Aminotransferase (ALT/SGPT) 40, Alkaline Phosphatase 110, Total Protein 8.1, Albumin 3.8, Globulin 4.3, Albumin/Globulin Ratio 0.9L Current Medications Medications (Trade) Dose Ordered Sig/Amy Route PRN Reason Start Time Stop Time Status Last Admin Dose Admin Albuterol/ Ipratropium (Albuterol/ Ipratropium) 3 ml Q4H PRN HHN Shortness of Breath 03/22/18 22:15 03/27/18 22:14 Atorvastatin Calcium (Lipitor) 40 mg BEDTIME ORAL 03/22/18 22:45 04/21/18 22:44 Chlorthalidone (Chlorthalidone) 25 mg DAILY ORAL 03/23/18 09:00 04/22/18 08:59 03/23/18 08:38 Docusate Sodium (Colace) 100 mg EVERY 12 HOURS ORAL 03/22/18 22:45 04/21/18 22:44 03/23/18 08:36 Enoxaparin Sodium (Lovenox) 80 mg Q12H SUBQ 03/23/18 05:00 04/22/18 04:59 03/23/18 17:23 Finasteride (Proscar) 5 mg DAILY ORAL 03/23/18 09:00 04/22/18 08:59 03/23/18 08:36 Furosemide (Lasix) 20 mg BID ORAL 03/23/18 09:00 04/22/18 08:59 Magnesium Hydroxide (Mom) 30 ml DAILY PRN ORAL Constipation 03/22/18 22:15 04/21/18 22:14 Metformin HCl (Glucophage) 500 mg DAILY ORAL 03/23/18 09:00 04/22/18 08:59 03/23/18 08:37 Nifedipine (Procardia XL) 60 mg DAILY ORAL 03/23/18 09:00 04/22/18 08:59 03/23/18 08:38 Potassium Chloride (K-Dur) 20 meq TWICE A DAY ORAL 03/23/18 09:00 04/22/18 08:59 03/23/18 17:21 Terazosin HCl (Hytrin) 2 mg QHS ORAL 03/23/18 21:00 04/22/18 20:59 Trazodone HCl (Desyrel) 50 mg BEDTIME ORAL 03/23/18 21:00 04/22/18 20:59 Zolpidem Tartrate (Ambien) 5 mg HSPRN PRN ORAL Insomnia 03/22/18 23:30 03/29/18 23:29 03/23/18 00:15 Efrem Barker MD Mar 23, 2018 17:41
--- NOTE | 2018-03-23 18:54 | General Progress Note ---
Assessment/Plan Problem List: (1) DVT (deep venous thrombosis) ICD Codes: I82.409 - Acute embolism and thrombosis of unspecified deep veins of unspecified lower extremity SNOMED: 740247021 (2) BPH (benign prostatic hyperplasia) ICD Codes: N40.0 - Benign prostatic hyperplasia without lower urinary tract symptoms SNOMED: 857933956 (3) HTN (hypertension) ICD Codes: I10 - Essential (primary) hypertension SNOMED: 72582713 Status: progressing Assessment/Plan acute dvt treatment per heme/onc afebrile htn djd chronic pain Subjective ROS Limited/Unobtainable: Yes Allergies: Coded Allergies: CELECOXIB (Verified Allergy, Unknown, 08/19/17) EGG (Verified Allergy, Unknown, 08/19/17) PENICILLINS (Verified Allergy, Unknown, 08/19/17) Objective Last 24 Hour Vital Signs Date Time Temp Pulse Resp B/P (MAP) Pulse Ox O2 Delivery O2 Flow Rate FiO2 03/23/18 16:00 97.3 70 19 152/77 (102) 97 03/23/18 13:36 70 16 Room Air 03/23/18 12:46 155/68 (97) 03/23/18 12:00 97.4 72 18 164/72 (102) 95 03/23/18 09:00 Room Air 03/23/18 08:38 71 153/54 (87) 03/23/18 08:38 71 153/54 03/23/18 08:00 98.2 66 18 164/63 (96) 96 03/23/18 04:00 97.5 75 19 155/85 (108) 96 03/23/18 00:00 97.9 72 20 155/78 (103) 95 03/22/18 21:00 Room Air 03/22/18 20:34 Room Air 03/22/18 20:15 98.0 72 20 148/71 (96) 96 03/22/18 20:10 98.3 64 15 124/53 97 Room Air Intake and Output 03/22/18 03/23/18 18:59 06:59 Intake Total 140 ml Output Total 450 ml Balance -310 ml Intake Oral 140 ml Output Urine Total 450 ml # Voids 1 4 # Bowel Movements 1 Laboratory Tests 03/23/18 07:00: White Blood Count 7.7, Red Blood Count 4.34L, Hemoglobin 12.7L, Hematocrit 37.4L , Mean Corpuscular Volume 86, Mean Corpuscular Hemoglobin 29.2, Mean Corpuscular Hemoglobin Concent 33.9, Red Cell Distribution Width 12.9, Platelet Count 222, Mean Platelet Volume 8.9, Neutrophils (%) (Auto) 65.0, Lymphocytes (% ) (Auto) 24.8, Monocytes (%) (Auto) 6.0, Eosinophils (%) (Auto) 3.5H, Basophils (%) (Auto) 0.7, Sodium Level 138, Potassium Level 3.7, Chloride Level 100, Carbon Dioxide Level 29, Anion Gap 9, Blood Urea Nitrogen 22H, Creatinine 1.3, Estimat Glomerular Filtration Rate , Glucose Level 131H, Calcium Level 9.8, Total Bilirubin 0.4, Aspartate Amino Transf (AST/SGOT) 20, Alanine Aminotransferase (ALT/SGPT) 40, Alkaline Phosphatase 110, Total Protein 8.1, Albumin 3.8, Globulin 4.3, Albumin/Globulin Ratio 0.9L Height (Feet): 5 Height (Inches): 8.00 Weight (Pounds): 180 Neck: supple Cardiovascular: normal rate Respiratory/Chest: lungs clear Abdomen: soft David Osullivan MD Mar 23, 2018 18:54
--- NOTE | 2018-03-23 19:12 | NUR ---
HAND-OFF: Report given to Katelynn.
--- NOTE | 2018-03-23 19:40 | NUR ---
NURSE NOTES: Patient sitting in chair, awake, alert. No IV access. No complaints of pain at this time. No s/s distress noted. Bed in low position, call light within reach. Will continue to monitor.
[2018-03-23] MEDS: TraZODone 50mg tab ORAL SCH (20:59)
[2018-03-23] MEDS: Atorvastatin 80mg tab ORAL SCH (20:59)
[2018-03-23] MEDS: Terazosin 1mg cap ORAL SCH (21:02)
--- NOTE | 2018-03-23 22:07 | NUR ---
NURSE NOTES: Patient wanted bed alarm to remain off. Nurse explained benefit of bed alarm, patient still refused.
[2018-03-24] VITALS: BP 150/63
[2018-03-24 04:34] VITALS: BP 141/68
[2018-03-24] MEDS: Enoxaparin 80mg Inj SUBQ SCH ×2 (05:07→17:00)
--- NOTE | 2018-03-24 07:04 | NUR ---
HAND-OFF: Report given to CHARITY MEDEIROS RN.
--- NOTE | 2018-03-24 07:45 | NUR ---
NURSE NOTES: Received patient in chair sitting, calm and comfortable. No acute resp distress noted. tolerating food intake well but non compliant with diet regimen. uses cane to ambulate. instructed to elevate BLE with pillows when in bed. No c/o pain/discomfort needed. call light is within reach. will cont to monitor.
[2018-03-24 08:00] VITALS: BP 125/82
[2018-03-24] MEDS: Docusate 100mg cap ORAL SCH ×2 (08:14→21:00)
[2018-03-24] MEDS: metFORMIN 500mg tab ORAL SCH (08:15)
[2018-03-24 12:00] VITALS: BP 161/77
--- NOTE | 2018-03-24 15:11 | NUR ---
HAND-OFF: Report given to Martha.
--- NOTE | 2018-03-24 16:44 | Pulmonology Progress Note ---
Assessment/Plan Assessment/Plan Pulmonary Progress Note Chief Complaint: Leg swelling HPI Patient was diagnosed with left leg DVT PROGRAM MGR while in [facility]. Complains with mild pain. no numbness/tingling. No CP or SOB. Allergies: CELECOXIB (Verified Allergy, Unknown, 08/19/17) EGG (Verified Allergy, Unknown, 08/19/17) PENICILLINS (Verified Allergy, Unknown, 08/19/17) Past Medical History: DM, HTN, HL, BPH, Leg weakness, Depression/Psychosis All Other Systems: negative except mentioned in HPI Objective Vital Signs Noted and stable General Appearance: well appearing, no apparent distress Head: normocephalic, atraumatic ENT: hearing grossly normal, normal voice Neck: full range of motion, supple Respiratory: no respiratory distress, speaking full sentences Musculoskeletal: calf tenderness Neurologic: alert, normal gait Impression: DVT (deep venous thrombosis) DM HTN HL BPH Chronic weakness Plan 1mg/kg dose BID for Lovenox. Oxygen PRN PROGRAM MGR medications Laboratory Tests Test 03/22/18 16:07 White Blood Count 8.8 K/UL (4.8-10.8) Red Blood Count 4.46 M/UL (4.70-6.10) L Hemoglobin 13.1 G/DL (14.2-18.0) L Hematocrit 38.4 % (42.0-52.0) L Mean Corpuscular Volume 86 FL (80-99) Mean Corpuscular Hemoglobin 29.4 PG (27.0-31.0) Mean Corpuscular Hemoglobin Concent 34.1 G/DL (32.0-36.0) Red Cell Distribution Width 12.5 % (11.6-14.8) Platelet Count 206 K/UL (150-450) Mean Platelet Volume 8.8 FL (6.5-10.1) Neutrophils (%) (Auto) 64.7 % (45.0-75.0) Lymphocytes (%) (Auto) 24.3 % (20.0-45.0) Monocytes (%) (Auto) 6.0 % (1.0-10.0) Eosinophils (%) (Auto) 4.1 % (0.0-3.0) H Basophils (%) (Auto) 0.8 % (0.0-2.0) Prothrombin Time 10.3 SEC (9.30-11.50) Prothrombin Time INR 1.0 (0.9-1.1) PTT 25 SEC (23-33) Sodium Level 138 MMOL/L (136-145) Potassium Level 3.6 MMOL/L (3.5-5.1) Chloride Level 100 MMOL/L (98-107) Carbon Dioxide Level 29 MMOL/L (21-32) Anion Gap 9 mmol/L (5-15) Blood Urea Nitrogen 28 mg/dL (7-18) H Creatinine 1.5 MG/DL (0.55-1.30) H Estimate Glomerular Filtration Rate mL/min (>60) Glucose Level 124 MG/DL (74-106) H Calcium Level 10.1 MG/DL (8.5-10.1) Total Bilirubin 0.3 MG/DL (0.2-1.0) Aspartate Amino Transferase (AST) 21 U/L (15-37) Alanine Aminotransferase (ALT) 33 U/L (12-78) Alkaline Phosphatase 120 U/L (46-116) H Total Protein 8.7 G/DL (6.4-8.2) H Albumin 4.1 G/DL (3.4-5.0) Globulin 4.6 g/dL Albumin/Globulin Ratio 0.9 (1.0-2.7) L EKG Time: 15:58 Rate: normal Rhythm: NSR ST Segments: no acute changes Subjective ROS Limited/Unobtainable: No Allergies: Coded Allergies: CELECOXIB (Verified Allergy, Unknown, 08/19/17) EGG (Verified Allergy, Unknown, 08/19/17) PENICILLINS (Verified Allergy, Unknown, 08/19/17) Objective Last 24 Hour Vital Signs Date Time Temp Pulse Resp B/P (MAP) Pulse Ox O2 Delivery O2 Flow Rate FiO2 03/24/18 12:00 97.8 72 18 161/77 (105) 97 03/24/18 09:00 Room Air 03/24/18 08:15 67 137/58 03/24/18 08:00 97.8 67 18 125/82 (96) 96 03/24/18 04:34 97.4 55 18 141/68 (92) 96 03/24/18 00:00 96.8 53 18 150/63 (92) 97 03/23/18 22:08 63 03/23/18 21:46 Room Air 1/19/19 20:00 98.2 55 19 153/65 (94) 96 03/23/18 19:50 64 16 Room Air 21 Intake and Output 03/23/18 03/24/18 19:00 07:00 Intake Total 800 ml 480 ml Balance 800 ml 480 ml Intake Oral 480 ml Other 800 ml # Voids 6 Current Medications Medications (Trade) Dose Ordered Sig/Amy Route PRN Reason Start Time Stop Time Status Last Admin Dose Admin Albuterol/ Ipratropium (Albuterol/ Ipratropium) 3 ml Q4H PRN HHN Shortness of Breath 03/22/18 22:15 03/27/18 22:14 Atorvastatin Calcium (Lipitor) 40 mg BEDTIME ORAL 03/22/18 22:45 04/21/18 22:44 03/23/18 20:59 Chlorthalidone (Chlorthalidone) 25 mg DAILY ORAL 03/23/18 09:00 04/22/18 08:59 03/24/18 08:15 Docusate Sodium (Colace) 100 mg EVERY 12 HOURS ORAL 03/22/18 22:45 04/21/18 22:44 03/24/18 08:14 Enoxaparin Sodium (Lovenox) 80 mg Q12H SUBQ 03/23/18 05:00 04/22/18 04:59 03/24/18 05:07 Finasteride (Proscar) 5 mg DAILY ORAL 03/23/18 09:00 04/22/18 08:59 03/24/18 08:15 Furosemide (Lasix) 20 mg BID ORAL 03/23/18 09:00 04/22/18 08:59 Magnesium Hydroxide (Mom) 30 ml DAILY PRN ORAL Constipation 03/22/18 22:15 04/21/18 22:14 Metformin HCl (Glucophage) 500 mg DAILY ORAL 03/23/18 09:00 04/22/18 08:59 03/24/18 08:15 Nifedipine (Procardia XL) 60 mg DAILY ORAL 03/23/18 09:00 04/22/18 08:59 03/24/18 08:15 Potassium Chloride (K-Dur) 20 meq TWICE A DAY ORAL 03/23/18 09:00 04/22/18 08:59 03/24/18 08:15 Terazosin HCl (Hytrin) 2 mg QHS ORAL 03/23/18 21:00 04/22/18 20:59 03/23/18 21:02 Trazodone HCl (Desyrel) 50 mg BEDTIME ORAL 03/23/18 21:00 04/22/18 20:59 03/23/18 20:59 Zolpidem Tartrate (Ambien) 5 mg HSPRN PRN ORAL Insomnia 03/22/18 23:30 03/29/18 23:29 03/23/18 22:03 Efrem Barker MD Mar 24, 2018 16:44
--- NOTE | 2018-03-24 19:48 | NUR ---
NURSE NOTES: Patient received from [facility] YOUNG . Refused lasix secondary to complaints of urinary urgency. Stable condition. Pt ab le to verbalize known needs. Call light in reach
--- NOTE | 2018-03-24 19:52 | NUR ---
HAND-OFF: Report given to Darshan WOODSON.
[2018-03-24 20:00] VITALS: BP 149/63
--- NOTE | 2018-03-24 20:00 | NUR ---
NURSE NOTES: Patient received ambulating in room with cane. Assisted back in bed, No acute distress at this time. Call light in reach. Will monitor.
--- NOTE | 2018-03-24 20:46 | General Progress Note ---
Assessment/Plan Problem List: (1) HTN (hypertension) ICD Codes: I10 - Essential (primary) hypertension SNOMED: 83490183 (2) DVT (deep venous thrombosis) ICD Codes: I82.409 - Acute embolism and thrombosis of unspecified deep veins of unspecified lower extremity SNOMED: 225463926 (3) BPH (benign prostatic hyperplasia) ICD Codes: N40.0 - Benign prostatic hyperplasia without lower urinary tract symptoms SNOMED: 631284056 Status: progressing Assessment/Plan acute dvt treatment per heme/onc check inr level moniter for bleeding Subjective ROS Limited/Unobtainable: Yes HEENT: Reports: no symptoms Allergies: Coded Allergies: CELECOXIB (Verified Allergy, Unknown, 08/19/17) EGG (Verified Allergy, Unknown, 08/19/17) PENICILLINS (Verified Allergy, Unknown, 08/19/17) Objective Last 24 Hour Vital Signs Date Time Temp Pulse Resp B/P (MAP) Pulse Ox O2 Delivery O2 Flow Rate FiO2 03/24/18 12:00 97.8 72 18 161/77 (105) 97 03/24/18 09:00 Room Air 03/24/18 08:15 67 137/58 03/24/18 08:00 97.8 67 18 125/82 (96) 96 03/24/18 04:34 97.4 55 18 141/68 (92) 96 03/24/18 00:00 96.8 53 18 150/63 (92) 97 03/23/18 22:08 63 03/23/18 21:46 Room Air Intake and Output 03/23/18 03/24/18 18:59 06:59 Intake Total 800 ml 480 ml Balance 800 ml 480 ml Intake Oral 480 ml Other 800 ml # Voids 6 Height (Feet): 5 Height (Inches): 8.00 Weight (Pounds): 180 Neck: supple Cardiovascular: normal rate Respiratory/Chest: lungs clear Abdomen: soft David Osullivan MD Mar 24, 2018 20:46
[2018-03-24] MEDS: Atorvastatin 80mg tab ORAL SCH (22:10)
[2018-03-24] MEDS: TraZODone 50mg tab ORAL SCH (22:10)
[2018-03-24] MEDS: Terazosin 1mg cap ORAL SCH (22:10)
[2018-03-24] MEDS: Zolpidem 5mg tab ORAL PRN (22:11)
[2018-03-24 23:53] VITALS: BP 140/69
[2018-03-25 04:03] VITALS: BP 150/71
[2018-03-25] MEDS: Enoxaparin 80mg Inj SUBQ SCH (05:09)
--- NOTE | 2018-03-25 07:15 | NUR ---
HAND-OFF: Report given to Radha WOODSON.
--- NOTE | 2018-03-25 07:47 | NUR ---
NURSE NOTES: Patient received in stable condition, eating breakfast in bed. Alert and oriented. Breathing unlabored on room air. Denies pain at this time. Cane and urinal by the bedside. Call light within reach, will continue to monitor.
[2018-03-25 08:00] VITALS: BP 124/64
[2018-03-25] MEDS: Docusate 100mg cap ORAL SCH ×3 (08:10→21:00)
[2018-03-25] MEDS: metFORMIN 500mg tab ORAL SCH (08:10)
[2018-03-25 12:00] VITALS: BP 125/70
--- NOTE | 2018-03-25 15:41 | Pulmonology Progress Note ---
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 Complains with mild pain. no numbness/tingling. No CP or SOB. Allergies: CELECOXIB (Verified Allergy, Unknown, 08/19/17) EGG (Verified Allergy, Unknown, 08/19/17) PENICILLINS (Verified Allergy, Unknown, 08/19/17) Past Medical History: DM, HTN, HL, BPH, Leg weakness, Depression/Psychosis All Other Systems: negative except mentioned in HPI Objective Vital Signs Noted and stable General Appearance: well appearing, no apparent distress Head: normocephalic, atraumatic ENT: hearing grossly normal, normal voice Neck: full range of motion, supple Respiratory: no respiratory distress, speaking full sentences Musculoskeletal: calf tenderness Neurologic: alert, normal gait Impression: DVT (deep venous thrombosis) DM HTN HL BPH Chronic weakness Plan 1mg/kg dose BID for Lovenox. Oxygen PRN INFUSION NURSE medications Laboratory Tests Test 03/22/18 16:07 White Blood Count 8.8 K/UL (4.8-10.8) Red Blood Count 4.46 M/UL (4.70-6.10) L Hemoglobin 13.1 G/DL (14.2-18.0) L Hematocrit 38.4 % (42.0-52.0) L Mean Corpuscular Volume 86 FL (80-99) Mean Corpuscular Hemoglobin 29.4 PG (27.0-31.0) Mean Corpuscular Hemoglobin Concent 34.1 G/DL (32.0-36.0) Red Cell Distribution Width 12.5 % (11.6-14.8) Platelet Count 206 K/UL (150-450) Mean Platelet Volume 8.8 FL (6.5-10.1) Neutrophils (%) (Auto) 64.7 % (45.0-75.0) Lymphocytes (%) (Auto) 24.3 % (20.0-45.0) Monocytes (%) (Auto) 6.0 % (1.0-10.0) Eosinophils (%) (Auto) 4.1 % (0.0-3.0) H Basophils (%) (Auto) 0.8 % (0.0-2.0) Prothrombin Time 10.3 SEC (9.30-11.50) Prothrombin Time INR 1.0 (0.9-1.1) PTT 25 SEC (23-33) Sodium Level 138 MMOL/L (136-145) Potassium Level 3.6 MMOL/L (3.5-5.1) Chloride Level 100 MMOL/L (98-107) Carbon Dioxide Level 29 MMOL/L (21-32) Anion Gap 9 mmol/L (5-15) Blood Urea Nitrogen 28 mg/dL (7-18) H Creatinine 1.5 MG/DL (0.55-1.30) H Estimate Glomerular Filtration Rate mL/min (>60) Glucose Level 124 MG/DL (74-106) H Calcium Level 10.1 MG/DL (8.5-10.1) Total Bilirubin 0.3 MG/DL (0.2-1.0) Aspartate Amino Transferase (AST) 21 U/L (15-37) Alanine Aminotransferase (ALT) 33 U/L (12-78) Alkaline Phosphatase 120 U/L (46-116) H Total Protein 8.7 G/DL (6.4-8.2) H Albumin 4.1 G/DL (3.4-5.0) Globulin 4.6 g/dL Albumin/Globulin Ratio 0.9 (1.0-2.7) L EKG Time: 15:58 Rate: normal Rhythm: NSR ST Segments: no acute changes Subjective ROS Limited/Unobtainable: No Allergies: Coded Allergies: CELECOXIB (Verified Allergy, Unknown, 08/19/17) EGG (Verified Allergy, Unknown, 08/19/17) PENICILLINS (Verified Allergy, Unknown, 08/19/17) Objective Last 24 Hour Vital Signs Date Time Temp Pulse Resp B/P (MAP) Pulse Ox O2 Delivery O2 Flow Rate FiO2 03/25/18 12:00 98.1 76 17 125/70 (88) 98 03/25/18 09:00 Room Air Room Air 03/25/18 08:11 79 150/71 03/25/18 08:00 98.9 71 17 124/64 (84) 96 03/25/18 07:20 67 16 Room Air 21 03/25/18 04:03 98.0 79 18 150/71 (97) 100 03/24/18 23:53 98.4 74 18 140/69 (92) 97 03/24/18 21:00 Room Air 03/24/18 20:48 68 16 Room Air 21 03/24/18 20:00 98.6 68 20 149/63 (91) 96 Intake and Output 03/24/18 03/25/18 19:00 07:00 Intake Total 1000 ml 500 ml Balance 1000 ml 500 ml Intake Oral 500 ml Other 1000 ml # Voids 3 Current Medications Medications (Trade) Dose Ordered Sig/Amy Route PRN Reason Start Time Stop Time Status Last Admin Dose Admin Albuterol/ Ipratropium (Albuterol/ Ipratropium) 3 ml Q4H PRN HHN Shortness of Breath 03/22/18 22:15 03/27/18 22:14 Atorvastatin Calcium (Lipitor) 40 mg BEDTIME ORAL 03/22/18 22:45 04/21/18 22:44 03/24/18 22:10 Chlorthalidone (Chlorthalidone) 25 mg DAILY ORAL 03/23/18 09:00 04/22/18 08:59 03/25/18 08:10 Docusate Sodium (Colace) 100 mg EVERY 12 HOURS ORAL 03/22/18 22:45 04/21/18 22:44 03/24/18 08:14 Enoxaparin Sodium (Lovenox) 80 mg Q12H SUBQ 03/23/18 05:00 04/22/18 04:59 03/25/18 05:09 Finasteride (Proscar) 5 mg DAILY ORAL 03/23/18 09:00 04/22/18 08:59 03/25/18 08:12 Furosemide (Lasix) 20 mg BID ORAL 03/23/18 09:00 04/22/18 08:59 03/24/18 18:33 Magnesium Hydroxide (Mom) 30 ml DAILY PRN ORAL Constipation 03/22/18 22:15 04/21/18 22:14 Metformin HCl (Glucophage) 500 mg DAILY ORAL 03/23/18 09:00 04/22/18 08:59 03/25/18 08:10 Nifedipine (Procardia XL) 60 mg DAILY ORAL 03/23/18 09:00 04/22/18 08:59 03/25/18 08:11 Potassium Chloride (K-Dur) 20 meq TWICE A DAY ORAL 03/23/18 09:00 04/22/18 08:59 03/25/18 08:11 Terazosin HCl (Hytrin) 2 mg QHS ORAL 03/23/18 21:00 04/22/18 20:59 03/24/18 22:10 Trazodone HCl (Desyrel) 50 mg BEDTIME ORAL 03/23/18 21:00 04/22/18 20:59 03/24/18 22:10 Zolpidem Tartrate (Ambien) 5 mg HSPRN PRN ORAL Insomnia 03/22/18 23:30 03/29/18 23:29 03/24/18 22:11 Efrem Barker MD Mar 25, 2018 15:41
[2018-03-25 16:00] VITALS: BP 141/72
[2018-03-25] MEDS: Xarelto 15mg tab ORAL SCH (17:13)
--- NOTE | 2018-03-25 19:09 | NUR ---
HAND-OFF: Report given to Alva WOODSON.
--- NOTE | 2018-03-25 19:57 | NUR ---
NURSE NOTES: Patient received ambulating around the room with his cane. Denies pain or discomfort at this time. All needs attended. Instructed to call for assistance. Will continue to monitor.
[2018-03-25 20:00] VITALS: BP 151/76
--- NOTE | 2018-03-25 21:55 | General Progress Note ---
Assessment/Plan Problem List: (1) HTN (hypertension) ICD Codes: I10 - Essential (primary) hypertension SNOMED: 82031107 (2) DVT (deep venous thrombosis) ICD Codes: I82.409 - Acute embolism and thrombosis of unspecified deep veins of unspecified lower extremity SNOMED: 317268673 (3) BPH (benign prostatic hyperplasia) ICD Codes: N40.0 - Benign prostatic hyperplasia without lower urinary tract symptoms SNOMED: 994689142 Status: progressing Assessment/Plan acute dvt treatment per heme/onc heme/onc started on xaralto no bleeding mild leg edema Subjective ROS Limited/Unobtainable: Yes Allergies: Coded Allergies: CELECOXIB (Verified Allergy, Unknown, 08/19/17) EGG (Verified Allergy, Unknown, 08/19/17) PENICILLINS (Verified Allergy, Unknown, 08/19/17) Objective Last 24 Hour Vital Signs Date Time Temp Pulse Resp B/P (MAP) Pulse Ox O2 Delivery O2 Flow Rate FiO2 03/25/18 21:00 Room Air Room Air 03/25/18 20:00 97.3 65 20 151/76 (101) 96 03/25/18 16:00 97.6 64 16 141/72 (95) 98 03/25/18 12:00 98.1 76 17 125/70 (88) 98 03/25/18 09:00 Room Air Room Air 03/25/18 08:11 79 150/71 03/25/18 08:00 98.9 71 17 124/64 (84) 96 03/25/18 07:20 67 16 Room Air 21 03/25/18 04:03 98.0 79 18 150/71 (97) 100 03/24/18 23:53 98.4 74 18 140/69 (92) 97 Intake and Output 03/24/18 03/25/18 18:59 06:59 Intake Total 1000 ml 500 ml Balance 1000 ml 500 ml Intake Oral 500 ml Other 1000 ml # Voids 3 Height (Feet): 5 Height (Inches): 8.00 Weight (Pounds): 180 Neck: supple Cardiovascular: normal rate Respiratory/Chest: lungs clear David Osullivan MD Mar 25, 2018 21:55
[2018-03-25] MEDS: Terazosin 1mg cap ORAL SCH (21:59)
[2018-03-25] MEDS: Atorvastatin 80mg tab ORAL SCH (21:59)
[2018-03-25] MEDS: Zolpidem 5mg tab ORAL PRN (21:59)
[2018-03-25] MEDS: TraZODone 50mg tab ORAL SCH (21:59)
[2018-03-26] VITALS: BP 118/62
[2018-03-26 04:00] VITALS: BP 137/55
--- NOTE | 2018-03-26 04:36 | NUR ---
HAND-OFF: Report given to [place] WOODSON.
--- NOTE | 2018-03-26 04:37 | NUR ---
NURSE NOTES: Received report from Alva RN, patient in no acute distress, ambulatory with a cane, asleep at this time, bed is in low position, alarm is on and bed is locked, call light is within reach. Will continue to monitor for safety and comfort.
--- NOTE | 2018-03-26 07:22 | NUR ---
HAND-OFF: Report given to Naif WOODSON.
--- NOTE | 2018-03-26 07:45 | NUR ---
NURSE NOTES: Received patient in chair sitting, alert x 4, able to make needs known, No acute distress noted, No c/o pain or any discomfort noted at this time, Instructed how to use call light, Call light and needs within reach, Will continue to monitor.
[2018-03-26 08:00] VITALS: BP 142/65
[2018-03-26] MEDS: metFORMIN 500mg tab ORAL SCH (09:11)
[2018-03-26] MEDS: Xarelto 15mg tab ORAL SCH (09:11)
[2018-03-26] MEDS: Docusate 100mg cap ORAL SCH (09:11)
--- NOTE | 2018-03-26 09:23 | NUR ---
NURSE NOTES: RN RECEIVED ORDER TO DISCHARGE PT BACK TO [facility] WITH HOSPITAL PO MEDS. RN MADE PT AWARE. RN LEFT MESSAGE FOR CASE MANAGEMENT [id number] REGARDING DISCHARGE ORDER. PT MADE AWARE AND AGREES WITH DISCHARGE. WILL CONTINUE TO MONITOR.
[2018-03-26] MEDS ORDERED: TERAZOSIN HCL1 MG ORAL (10:05)
[2018-03-26] MEDS ORDERED: AMBIEN5 MG ORAL (10:06)
[2018-03-26] MEDS ORDERED: XARELTO10 MG ORAL (10:09)
--- NOTE | 2018-03-26 10:15 | NUR ---
NURSE NOTES: RN HAS NOT RECEIVED CALL BACK FROM PROFILING MACHINE SET UP OPERATOR. RN LEFT MESSAGE FOR TUSHAR ROSARIO REGARDING DISCHARGE ORDER.
--- NOTE | 2018-03-26 10:37 | NUR ---
*-* DISCHARGE PLANNING *-* PATIENT HAS BEEN REFERRED TO: P:[phone] F:[phone]
--- NOTE | 2018-03-26 11:11 | NUR ---
*-* DISCHARGE PLANNED *-* PT HAS BEEN DISCHARGED TO: [id number] SKILLED T:[phone] FOR NURSE TO NURSE REPORT [facility] HAS BEEN ARRANGED FOR DIAL [facility] AT [address] [phone]
--- NOTE | 2018-03-26 11:12 | Consultation ---
Consult Note Consult Note BRIEF: asked to eval by Dr Estevez diagnosed with left leg DVT earlier today. Complains with mild pain. no numbness /tingling. No CP or SOB. Referred here by Dr. Osullivan for eval and treatment Allergies: CELECOXIB (Verified Allergy, Unknown, 08/19/17) EGG (Verified Allergy, Unknown, 08/19/17) PENICILLINS (Verified Allergy, Unknown, 08/19/17) Past Medical History: No History, Except For Hx Cardiac Problems: Yes - Hypokalemia Hx Hypertension: Yes Hx Diabetes: Yes Hx Gastrointestinal Problems: No - BPH History Of Psychiatric Problem: Yes - major depression, psychosis Assessment/Plan DVT Labs ordered will follow Yomi Bingham MD Mar 26, 2018 11:12
[2018-03-26 11:31] LABS: BASOPHILS % (AUTO) 0.7 % (0.0-2.0); EOSINOPHILS % (AUTO) 3.8 % (0.0-3.0); HEMATOCRIT 38.9 % (42.0-52.0); HEMOGLOBIN 12.9 G/DL (14.2-18.0); LYMPHOCYTES % (AUTO) 20.4 % (20.0-45.0); MEAN CORPUSCULAR VOLUME 87 FL (80-99); MONOCYTES % (AUTO) 5.6 % (1.0-10.0); NEUTROPHILS % (AUTO) 69.5 % (45.0-75.0); PLATELET COUNT 223 K/UL (150-450); RED BLOOD COUNT 4.46 M/UL (4.70-6.10); WHITE BLOOD COUNT 8.4 K/UL (4.8-10.8)
[2018-03-26 11:35] VITALS: BP 146/69
[2018-03-26 11:47] LABS: ANION GAP 8 mmol/L (5-15); BLOOD UREA NITROGEN 21 mg/dL (7-18); CALCIUM 9.8 MG/DL (8.5-10.1); CARBON DIOXIDE 31 MMOL/L (21-32); CHLORIDE 101 MMOL/L (98-107); CREATININE 1.5 MG/DL (0.55-1.30); SODIUM 140 MMOL/L (136-145)
--- NOTE | 2018-03-26 11:49 | NUR ---
NURSE NOTES: [facility] 15mg po bid x 21days and then Xarelto 20mg po daily.
[2018-03-26 12:04] LABS: ALANINE AMINOTRANSFERASE 63 U/L (12-78); ALBUMIN 3.9 G/DL (3.4-5.0); ALBUMIN/GLOBULIN RATIO 0.9 (1.0-2.7); ALKALINE PHOSPHATASE 109 U/L (46-116); ASPARTATE AMINO TRANSFERASE 48 U/L (15-37); BILIRUBIN,TOTAL 0.4 MG/DL (0.2-1.0); CHOLESTEROL 200 MG/DL (< 200); GAMMA GLUTAMYL TRANSPEPTIDASE 46 U/L (5-85); HDL CHOLESTEROL 43 MG/DL (40-60); PHOSPHORUS 2.9 MG/DL (2.5-4.9); TRIGLYCERIDES 241 MG/DL (30-150)
--- NOTE | 2018-03-26 12:10 | NUR ---
NURSE NOTES: DR RICHMOND MADE AWARE OF BUN 21 AND CREATININE 1.5 AND SET FOR DISCHARGE TODAY [facility]. PER , OK TO CONTINUE WITH DISCHARGE.
--- NOTE | 2018-03-26 14:12 | NUR ---
NURSE NOTES: PT WAS DISCHARGED BY [facility]. BELONGINGS CHECKED AT BEDSIDE. PT STATES HE HAS HIS CREDIT CARD AND TRUJILLO, DOESN'T WANT TO REVIEW WALLET AT BEDSIDE. PT IS WEARING WATCH.
--- NOTE | 2018-03-27 09:42 | Discharge Summary ---
Discharge Summary Discharge Summary _ DATE OF ADMISSION: 03/22/2018 DATE OF DISCHARGE: 2018 DISCHARGED BY: REASON FOR ADMISSION: 73 years old male with past medical history of hypertension, BPH, diabetes mellitus, was diagnosed with left lower extremity deep vein thrombosis earlier that [facility] and was referred by his primary care provider for further evaluation and management. Patient reported mild pain , no numbness , no tingling . He denied chest pain or shortness of breath. Upon evaluation vital signs were stable . Laboratory workup revealed no leukocytosis, stable hemoglobin hematocrit . BUN 28 , creatinine 1.5 , glucose 124 Patient was admitted for further management. CONSULTANTS: pulmonary Dr. Barker food services coordinator Dr. Bingham [facility] COURSE: Patient admitted. Patient started on full anticoagulation with Lovenox. Supplemental oxygen was on board as needed to keep pulse oximetry above 92% along with pulmonary toilet. Pulse oximetry remained stable on room air throughout the patient stay in the hospital. Clothes Drier Assembler closely followed. Blood pressure was managed with current medication regimen and remained stable. Lipid panel revealed elevated LDL and triglycerides. Statin was continued. Patient was educated on low-fat , low-cholesterol cardiac diabetic diet. Blood sugar was managed with metformin. Hemoglobin A1c 5.9. Hytrin and Proscar were continued. No difficulty with voiding. Mattress Specialist followed . Renal parameters and electrolytes were closely monitored. Electrolytes corrected as needed.Nephrotoxins were avoided. Creatinine without significant change prior to discharge BUN 25 creatinine 1.5. Pain management was addressed. Bowel regimen instituted. Supportive care provided. Antidepressant regimen continued. Patient clinically stabilized . Prior to discharge Lovenox was switched to Xarelto . Patient was stable for discharge to the [facility] facility. Repeat venous duplex in 3 months . FINAL DIAGNOSES: Acute DVT left lower extremity Diabetes mellitus Hypertension Hyperlipidemia BPH Renal insufficiency, likely chronic Major depression DISCHARGE MEDICATIONS: See Medication Reconciliation list. DISCHARGE INSTRUCTIONS: Patient was [facility] to [facility]. Follow up with medical doctor at the facility. I have been assigned to dictate discharge summary for this account. I was not involved in the patient's management. Deepika Jerome NP Mar 27, 2018 09:42
--- NOTE | 2018-03-27 20:17 | Consultation ---
History of Present Illness General Date patient seen: Mar 27, 2018 Chief Complaint: General Complaint Present Illness Allergies: Coded Allergies: CELECOXIB (Verified Allergy, Unknown, 08/19/17) EGG (Verified Allergy, Unknown, 08/19/17) PENICILLINS (Verified Allergy, Unknown, 08/19/17) Medication History Scheduled Atorvastatin Calcium* (Atorvastatin Calcium*), 40 MG ORAL BEDTIME, (Reported) Chlorthalidone* (Chlorthalidone*), 25 MG ORAL DAILY, (Reported) Docusate Sodium* (Colace*), 100 MG ORAL EVERY 12 HOURS Finasteride* (Proscar*), 5 MG ORAL DAILY, (Reported) Furosemide* (Lasix*), 20 MG ORAL BID, (Reported) Metformin Hcl* (Metformin Hcl*), 500 MG ORAL DAILY, (Reported) Nifedipine Er* (Nifedipine Er*), 60 MG ORAL DAILY, (Reported) Potassium Chloride* (K-Dur*), 20 MEQ ORAL TWICE A DAY, (Reported) Rivaroxaban (Xarelto*), 15 MG ORAL BID, (Reported) Saw Navarre (Saw Navarre), 450 MG PO TID, (Reported) Terazosin HCl (Terazosin HCl), 2 MG PO QHS, (Reported) Terazosin Hcl* (Hytrin*), 2 MG ORAL BEDTIME, (Reported) Trazodone Hcl* (Desyrel*), 50 MG ORAL BEDTIME, (Reported) Scheduled PRN Guaifenesin/D-Methorphan Hb/Pe (Robitussin Cough-Cold Cf Liq), 5 ML PO EVERY 6 HOURS PRN for For Cough, (Reported) Ibuprofen* (Motrin*), 600 MG ORAL Q6H PRN for For Pain, (Reported) Ipratropium/Albuterol Sulfate (DuoNeb 0.5-3(2.5)mg/3ml), 3 ML HHN EVERY 4 HOURS PRN for Shortness of Breath, (Reported) Magnesium Hydroxide (Milk of Magnesia), 30 ML ORAL DAILY PRN for Constipation, ( Reported) Melatonin (Melatonin), 3 MG PO BEDTIME PRN for INSOMNIA, (Reported) Zolpidem Tartrate* (Ambien*), 5 MG ORAL BEDTIME PRN for Insomnia, (Reported) Miscellaneous Medications Zinc Oxide (Desitin), (Reported) Discontinued Medications Acetaminophen* (Acetaminophen 325MG Tablet*), 650 MG ORAL Q4H PRN for Fever/ Headache/Mild Pain, (Reported) Discontinued Reason: Therapy completed Amlodipine Besylate* (Amlodipine Besylate*), 10 MG ORAL DAILY, (Reported) Discontinued Reason: Therapy completed Atorvastatin Calcium* (Lipitor*), 40 MG ORAL BEDTIME, (Reported) Discontinued Reason: Prescription changed Chloraseptic Lanse (Sm Sore Throat Lanse), 1 SPRAY ORAL EVERY 3 HOURS, (Reported ) Discontinued Reason: Therapy completed Divalproex Sodium* (Depakote*), 250 MG ORAL EVERY 12 HOURS Discontinued Reason: Therapy completed Hydralazine Hcl* (Hydralazine Hcl*), 25 MG ORAL EVERY 4 HOURS PRN for For High Blood Pressure, (Reported) Discontinued Reason: Therapy completed Hydrocodone Bit/Acetaminophen 5-325* ([place] 5-325*), 1 TAB ORAL Q4H PRN for For Pain, (Reported) Discontinued Reason: Therapy completed Lisinopril (Lisinopril*), 10 MG ORAL BID, (Reported) Discontinued Reason: Therapy completed Potassium Chloride (Potassium Chloride), 20 MEQ ORAL DAILY, (Reported) Discontinued Reason: Prescription changed Tamsulosin Hcl (Tamsulosin Hcl*), 0.4 MG ORAL BID, (Reported) Discontinued Reason: Therapy completed Terazosin Hcl* (Hytrin*), 2 MG ORAL BEDTIME, (Reported) Discontinued Reason: Prescription changed Patient History Healthcare decision maker Resuscitation status Do Not Resuscitate Advanced Directive on File Physical Exam Intake and Output 03/26/18 03/27/18 19:00 07:00 Intake Total 820 ml Balance 820 ml Intake Oral 820 ml # Voids 3 Height (Feet): 5 Height (Inches): 8.00 Weight (Pounds): 180 Assessment/Plan Assessment/Plan Hematology Consultation Late entry DOS: 03/26/18 RFC: DVT DEVIN FINN: Shi DATE OF ADMISSION: 03/22/2018 HISTORY OF PRESENT ILLNESS: The patient is admitted for acute deep vei thrombosis. The patient also has leg edema. Denies nausea, vomiting, or diarrhea. No fever or chills. Denies shortness of breath. Denies cough. Denies hemoptysis. PAST MEDICAL HISTORY: Lower extremity weakness, constipation, BPH, insomnia, NIDDM, hypertension, degenerative joint disease, and hyperlipidemia. PAST SURGICAL HISTORY: Denies. MEDICATIONS: Finasteride, Colace, atorvastatin, melatonin, metformin, nifedipine, antacids, and Proscar. ALLERGIES: Celebrex, and penicillin. FAMILY HISTORY: Noncontributory. SOCIAL HISTORY: No history of smoking, alcohol, or illicit drugs. REVIEW OF SYSTEMS: HEENT: Denies headaches. RESPIRATORY: Denies shortness of breath. Denies cough. CARDIOVASCULAR: Denies chest pain. No orthopnea. GASTROINTESTINAL: Denies nausea, vomiting, or diarrhea. EXTREMITIES: The patient has generalized pain, which is uncontrolled. Has leg edema. CENTRAL NERVOUS SYSTEM: No change in vision or speech pattern. PHYSICAL EXAMINATION: VITAL SIGNS: Temperature is 98.4, pulse of 72, and blood pressure 112/64. HEENT: PERRLA. NECK: Supple. No lymphadenopathy. CHEST: Clear to auscultation. CARDIOVASCULAR: Regular rate and rhythm. No murmurs or extra sounds. GASTROINTESTINAL: Soft and nontender. No organomegaly. EXTREMITIES: A 1+ edema in the lower extremities. CENTRAL NERVOUS SYSTEM: No change in vision or speech pattern. Has lower extremity weakness. Mostly wheelchair bound. Reflexes equal on both sides. Labs reviewed ASSESSMENT AND PLAN: # Acute DVT on the ultrasound of left leg-- started on xarelto and to continue as outpatient --> prescrip was given # ACD - w/u has been ordered --> no evidence of hemolysis was noted --> peripheral smear was reviewed # Azotemia. per renal Greatly appreciate consultation Tony Byers MD Mar 27, 2018 20:17
== END 2018-03-26 13:30 | DRG 301 ==
LOC: EDBD 14:58 → EMR 15:59 → EDBEDREQ 17:11 → EDBEDREQSVC 17:11 → 4E 17:27 → EDBEDREQSVC 17:37 → EDBEDREQ 17:49 → 4E 22:40
DX: I82.402 Acute embolism and thrombosis of unspecified deep veins of left lower extremity (principal); E11.22 Type 2 diabetes mellitus with diabetic chronic kidney disease; I12.9 Hypertensive chronic kidney disease with stage 1 through stage 4 chronic kidney disease, or unspecified chronic kidney disease; Z88.6 Allergy status to analgesic agent; Z88.0 Allergy status to penicillin; N40.0 Benign prostatic hyperplasia without lower urinary tract symptoms; G47.00 Insomnia, unspecified; M19.90 Unspecified osteoarthritis, unspecified site; F32.9 Major depressive disorder, single episode, unspecified; N18.9 Chronic kidney disease, unspecified; E78.5 Hyperlipidemia, unspecified; Z79.84 Long term (current) use of oral hypoglycemic drugs
CPT/HCPCS: 36415; 80053; 80061; 82977; 83036; 83735; 83880; 84100; 84443; 84550; 85025; 85610; 85730; 86140; 93005; 94664; 99285; J8499